=== PATIENT | female | born 1955 | race African-American/Black ===

== ENCOUNTER 2017-02-14 10:11 | Day surgery (SDC) | payer MEDICARE, MEDICAID ==
--- NOTE | 2017-02-14 08:29 | History and Physical Report ---
DATE OF EVALUATION: 02/13/2017. CHIEF COMPLAINT AND HISTORY OF CHIEF COMPLAINT: This patient presents with a history of intractable lumbar radiculitis. Due to the failure of all therapies , a spinal cord stimulator trial was conducted on 01/22/2017 with 75 to 85% pain control. Due to the failure of all therapies and the success of the trial she presents today for implantation of a permanent system. PAST MEDICAL HISTORY: Hypertension, asthmatic bronchitis, hypothyroidism. REVIEW OF SYSTEMS: The patient seems appropriate and in no acute distress. The remainder of the systems review shows glasses, headaches, breathing difficulties, peripheral edema, degenerative arthritis, depression, difficulty sleeping. SOCIAL HISTORY: Caffeine. FAMILY HISTORY: Thyroid disease, asthma, hypertension. PAST SURGICAL HISTORY: Abdominal surgery, rotator cuff surgery. ALLERGIES: To be provided. MEDICATIONS ON ADMISSION: To be provided. PHYSICAL EXAMINATION: General: Height is 5 feet, 6 inches. Weight is 300 pounds. Vital Signs: Blood pressure is 140/80. Musculoskeletal: Current examination shows diffuse tenderness in the lumbar spine. Range of motion produces primary pain into both legs across the front and back surface. Ambulation: No assistive device utilized. Neurologic: Cranial nerves are intact. IMPRESSION: LUMBAR RADICULITIS, ICD10 CODE M54.16 AND M54.17. PLANS: The patient is here for implantation of a permanent spinal cord stimulator based upon a successful trial and the failure of all other therapies. The potential risks, side effects, and complications have been carefully reviewed and discussed including nerve root injury, spinal cord trauma , dural puncture, and headache. She understands and has agreed and consented. The procedure will be considered outpatient, although an overnight stay will be evaluated. Ramírez Lua D.O. Date Time JOB NUMBER: [id number] cc: Dr. Katerine LAZAR
[~2017-02-14 10:11] MED LIST: ACETAMINOPHEN 1000MG/100 ML PREMIX IV ONE; CEFAZOLIN 2 Gram 50 ML IVPB ONE; FAMOTIDINE 20MG TABLET PO ONE; MECLIZINE 25 MG TABLET PO ONE; METOCLOPRAMIDE 10 MG TABLET PO ONE
[2017-02-14] MEDS ORDERED: AL HYDROX/MAG HYDROX 30ML UD PO PRN (14:33)
[2017-02-14] MEDS ORDERED: METOCLOPRAMIDE HCL 10 MG/2 ML VIAL IVP PRN (14:33)
[2017-02-14] MEDS ORDERED: SENNOSIDES/DOCUSATE SODIUM UD CAPSULE PO PRN ×2 (14:33)
[2017-02-14] MEDS ORDERED: DIPHENHYDRAMINE HCL IV 50 MG/ML VIAL IVP PRN ×2 (14:33)
[2017-02-14] MEDS ORDERED: TEMAZEPAM 15 MG CAPSULE PO PRN ×2 (14:33)
[2017-02-14] MEDS ORDERED: DIPHENHYDRAMINE HCL 25 MG CAPSULE PO PRN ×2 (14:33)
[2017-02-14] MEDS ORDERED: METOCLOPRAMIDE 10 MG TABLET PO PRN (14:33)
[2017-02-14] MEDS ORDERED: OXYCODONE/APAP 10MG-325MG TABLET PO PRN (14:33)
[2017-02-14] MEDS ORDERED: ACETAMINOPHEN 325 MG TAB PO PRN ×2 (14:33)
[2017-02-14] MEDS ORDERED: HYDROMORPHONE HCL 1 MG/ML CPJ IM PRN (14:33)
[2017-02-14] MEDS ORDERED: HYDROCODONE/APAP 7.5/325MG TABLET PO PRN ×2 (14:33)
[2017-02-14] MEDS ORDERED: CYCLOBENZAPRINE 10MG TABLET PO PRN (14:40)
[2017-02-14] MEDS ORDERED: DIAZEPAM 5 MG TABLET PO PRN (14:40)
[2017-02-14] MEDS ORDERED: HYDROMORPHONE HCL 2 MG/ML VIAL IV ONE (16:19)
[2017-02-14] MEDS ORDERED: CEFAZOLIN 1G VIAL IM ONE (16:19)
[2017-02-14] MEDS ORDERED: FENTANYL PF 100MCG/2ML VIAL IV ONE ×2 (16:19→16:26)
[2017-02-14] MEDS ORDERED: LIDOCAINE 1% W/EPI 1:200,000 MPF 30ML SQ ONE (16:19)
[2017-02-14] MEDS ORDERED: BUPIVACAINE 0.5% W/EPI MPF 30 ML VIAL IVP ONE (16:19)
[2017-02-14] MEDS ORDERED: MIDAZOLAM HCL 2MG/2ML VIAL IV ONE (16:26)
[2017-02-14] MEDS ORDERED: PROPOFOL 10 MG/ML VIAL IV ONE (16:26)
[2017-02-14] MEDS ORDERED: LABETALOL HCL 5MG/ML, 20ML VIAL SIVP ONE (16:26)
[2017-02-14] MEDS ORDERED: LIDOCAINE 2% MDV (20MG/ML) 20ML VIAL IV ONE (16:26)
[2017-02-14] MEDS: CEFAZOLIN 2 Gram 50 ML IVPB SCH (19:55)
[2017-02-14] MEDS: HYDROMORPHONE HCL 2 MG/ML VIAL IM PRN (20:01)
[2017-02-14] MEDS: 0.9 % SODIUM CHLORIDE 10ML SYR IVP SCH (21:49)
[2017-02-14] MEDS ORDERED: TRAZODONE 50 MG TABLET PO SCH (22:00)
[2017-02-15] MEDS: HYDROMORPHONE HCL 2 MG/ML VIAL IM PRN (02:37)
[2017-02-15] MEDS: CEFAZOLIN 2 Gram 50 ML IVPB SCH ×2 (03:17→09:49)
[2017-02-15] MEDS: OXYCODONE/APAP 10MG-325MG TABLET PO PRN ×2 (06:32→11:00)
[2017-02-15] MEDS ORDERED: PANTOPRAZOLE SODIUM 40 MG TABLET PO SCH (07:00)
[2017-02-15] MEDS ORDERED: LEVOTHYROXINE SODIUM 175 MCG TABLET PO SCH (07:00)
[2017-02-15] MEDS: 0.9 % SODIUM CHLORIDE 10ML SYR IVP SCH (09:03)
[2017-02-15] MEDS ORDERED: LOSARTAN POTASSIUM 25 MG TABLET PO SCH (10:00)
[2017-02-15] MEDS ORDERED: BUPROPION HCL 150 MG TAB.SR.12H PO SCH (10:00)
--- NOTE | 2017-02-19 12:07 | RADIOLOGY REPORT ---
EXAM: LOWER THORACIC AND LUMBAR SPINE, SINGLE VIEW HISTORY: CATHETER PLACEMENT. TECHNIQUE: A single AP view of the lower thoracic and upper lumbar spine were obtained. Comparison: Intraoperative images from today's date. FINDINGS: There is a stimulating device projecting over the left lower quadrant with two proximal lead tips. The proximal portions of the tips project over the T8 vertebral body. Correlate with intraoperative findings. IMPRESSION: STIMULATING WIRES IN PLACE, ABOVE. JOB NUMBER: [id number] MTDD
--- NOTE | 2017-02-20 15:10 | Operative Note - Ferro ---
DATE OF SURGERY: 02/14/17 PREOPERATIVE DIAGNOSIS: INTRACTABLE LUMBAR RADICULITIS, ICD-10 CODE = M54.16 AND M54.17. OPERATION: 1. FLUOROSCOPICALLY-GUIDED LEFT EPIDURAL ACCESS T12/L1, PLACEMENT OF SPINAL CORD STIMULATOR LEAD 1, A [employer] INFINION 16 WITH 16 ELECTRODES POSITIONED LEFT T7. 2. COMPLEX PROGRAMMING LEAD 1, 20 MINUTES. 3. FLUOROSCOPICALLY-GUIDED EPIDURAL ACCESS LEFT T11/12, PLACEMENT OF SPINAL CORD STIMULATOR LEAD 2, A [employer] INFINION 16 WITH 16 ELECTRODES POSITIONED RIGHT T7. 4. COMPLEX PROGRAMMING LEAD 2, 20 MINUTES. 5. INCISION, SUBCUTANEOUS DISSECTION, AND ANCHORING OF LEAD 1 AND LEAD 2 TO DEEP FASCIA USING A [employer] LOCKING ANCHOR. 6. INCISION, SUBCUTANEOUS DISSECTION, AND CREATION OF SUBCUTANEOUS POUCH, LEFT FLANK, SITE PICKED BY PATIENT FOR GENERATOR IDENTIFIED A [employer] PROGRAMMABLE RECHARGEABLE. 7. TUNNELING BETWEEN POUCHES. PLACEMENT OF EXTERNAL PORTION OF LEAD 1 AND LEAD 2 INTO GENERATOR POUCH, EACH LEAD INTERFACED WITH BIFURCATED EXTENSION, EACH BIFURCATED EXTENSION INTERFACED TO GENERATOR. 8. PLACEMENT OF LEADS INTO POUCH, PLACEMENT OF GENERATOR INTO POUCH SECURED TO THE FASCIA WITH NONABSORBABLE SUTURE AND THEN THE INCISIONS WERE CLOSED VICRYL FOR FASCIA, RUNNING SUBCUTICULAR VICRYL FOR SKIN. DERMABOND CLOSURE. 9. COMPLEX RECOVERY ROOM PROGRAMMING INTERNAL GENERATOR HOME USE, TWO STIMULATORS, 20 MINUTES. SURGEON: KUN SPANGLER D.O. ANESTHESIA: LOCAL SEDATION. ANESTHESIA PROVIDER: GEO RAMIREZ CRNA. INDICATION: This patient presents with a history of intractable lumbar radiculitis. Due to the failure of all therapies, a stimulator trial was conducted with 75 to 90% pain control. Due to the failure of all therapies and the success of the trial, the patient presents today for implantation of a permanent system. PROCEDURE: Intravenous line, vital sign monitoring, IV sedation by Anesthesia, patient positioned prone. Sterile prep, sterile technique. Under imaging, from the left side T11/12 and 12/1 were identified, marked, infiltrated, and then two separate curved access Epimed needles with [id number] into the epidural space. At T12/1, spinal cord stimulator lead 1, a [employer] Infinion 16 with 16 electrodes positioned left T7. Epidural access left of midline at T11/12, Epimed curved access with [id number], spinal cord stimulator lead 2, also a [employer] Infinion 16 with 16 electrodes, positioned right T7. Complex programming of lead 1 over 20 minutes followed by complex programming of lead 2 over 20 minutes ultimately resulting in patterns of stimulation across the back and into the legs; patient indicating we were in all of the appropriate areas. She was given the option to implant, continue to program, or remove; she opted to implant. Questions were repeated with the same response. The skin above and below the needles was infiltrated, incision made, and subcutaneous dissection was conducted to the deep fascia. The needles were removed and each lead was anchored to the deep fascia with a [employer] [place] using nonabsorbable suture. At the left flank, a site picked by the patient for the generator identified as a [employer] Programmable Rechargeable, skin infiltrated, incision made, and subcutaneous dissection was conducted to form a pouch of suitable size and depth for the generator. A tunneling tool was then used to carry the leads into the generator pouch and each lead was interfaced with a bifurcated extension, each bifurcated extension was then interfaced to the generator. Antibiotic irrigation and Bovie for hemostasis. The leads were then placed into the pouch, the generator placed into the pouch and secured to the fascia with nonabsorbable suture. The incisions were closed Vicryl for fascia and running subcuticular Vicryl for skin. A Dermabond closure to approximate the edges of the wound. She was transported to the Recovery Room stable showing no side-effects from the procedure or the sedation. When fully awake and alert, complex re-programming performed in the Recovery Room over 20 minutes re-establishing stimulation and pain control to all of the appropriate areas. By her request because of no support system at home, she will be kept overnight for observation and discharged in the morning. DISCHARGE INSTRUCTIONS IN THE MORNIN. The sites will remain clean and dry although the Dermabond will allow showering on the next day. 2. Standard medications resumed including Levaquin, the antibiotic, 500 mg once a day for 14 days. 3. She will limit activities limiting bend, push, pull and will be seen in the office. At that point, once the incisions are checked, she will be cleared for further activities. All other instructions provided, numbers to contact, problems given. She will be discharged in the morning. KUN SPANGLER D.O. Date & Time cc: Dr. Garcias JOB NUMBER: [id number] MTDD
== END 2017-02-15 12:33 | disposition home or self-care (01) ==
LOC: SUR 10:11 → MEDSURG 14:22 → SUR 02-15 12:33
PROVIDERS: ATTEND Pain Medicine Interventional Pain Medicine
DX: M54.16 Radiculopathy, lumbar region (principal); M54.17 Radiculopathy, lumbosacral region; E03.9 Hypothyroidism, unspecified; I10 Essential (primary) hypertension
CPT/HCPCS: 95972; 72020; 63685; 63650 ×2; 00300; J3490; J3010; J1170 ×3; J0690 ×2

== ENCOUNTER 2017-04-05 09:19 | Inpatient (IN) | payer MEDICARE, MEDICAID ==
--- NOTE | 2017-03-22 15:33 | Rehab Joint Replacement Pre-Op ---
Rehab Joint Replacement Pre-Op - Pre-Op Visit Reviewed Items Scheduled for Post Op Visit: Yes Scheduled Post Op Visit Date: 04/06/17 Pre-Op Visit Comment: Pt. lives in a single story apartment with 5 steps leading in and hand rails on both sides. Pt. has a raised toilet seat and standard shower tub. Pt. has family members at home who are able to provide support. Pt. is on physical disability. Pt. has a single point cane and standard walker. Lang Hose/Garment Measurement TKR - Knee High: Yes (Measurements taken for knee high Lang Hose.) Exercise Reviewed: Yes (Pt. instructed to perform ankle pumps, quad sets, glut sets, and heel slides.) Stair Climbing: Yes (Pt. instructed to ascend and descend stairs with standard walker and single point cane.) Cane/Walker/Crutch Training: Yes (Pt. instructed to ambulate with standard walker and single point cane.) Vend Equipment - Cane or Walker and OT Kit: N/A (Pt. received list of DME vendors.) List of Venders in the Area: Yes Shower Chair Transfers: Yes (Pt. instructed to hook operative LE and transfer to and from shower chair.) Car Transfers: Yes (Pt. instructed to appropriately perform car transfer.) Bed Transfers: Yes (Pt. instructed to appropriately perform bed mobility.) Medical History Forms Issued: No Functional Scale Forms Issued: No
[~2017-04-05 09:19] MED LIST changes: +CELECOXIB 100 MG CAPSULE PO ONE
[2017-04-05] MEDS ORDERED: MIDAZOLAM HCL 2MG/2ML VIAL IV ONE (14:00)
[2017-04-05] MEDS ORDERED: BUPIVACAINE 0.25% MPF 30ML VIAL IVP ONE (14:00)
[2017-04-05] MEDS ORDERED: BUPIVACAINE LIPOSOME 266MG/20ML VIAL IV ONE (14:00)
[2017-04-05] MEDS ORDERED: LIDOCAINE 2% MDV (20MG/ML) 20ML VIAL IV ONE (14:00)
[2017-04-05] MEDS ORDERED: HYDROMORPHONE HCL 2 MG/ML VIAL IV ONE ×2 (14:00)
[2017-04-05] MEDS ORDERED: PROPOFOL 10 MG/ML VIAL IV ONE (14:00)
[2017-04-05] MEDS ORDERED: DIPHENHYDRAMINE HCL IV 50 MG/ML VIAL IVP ONE (14:00)
[2017-04-05] MEDS ORDERED: FENTANYL PF 100MCG/2ML VIAL IV ONE (14:00)
[2017-04-05] MEDS ORDERED: TRANEXAMIC ACID 1,000 MG/10 ML ML IV ONE (14:00)
[2017-04-05] MEDS: RINGERS SOLUTION,LACTATED 1,000 ML IV SCH (14:20)
[2017-04-05] MEDS ORDERED: HYDROMORPHONE HCL 1 MG/ML CPJ IVP PRN (14:59)
[2017-04-05] MEDS ORDERED: ZOLPIDEM TARTRATE 5 MG TABLET PO PRN (15:00)
[2017-04-05] MEDS ORDERED: MAGNESIUM HYDROXIDE 30 ML UDC PO PRN (15:00)
[2017-04-05] MEDS ORDERED: METOCLOPRAMIDE HCL 10 MG/2 ML VIAL IVP PRN (15:00)
[2017-04-05] MEDS ORDERED: OXYCODONE HCL 5 MG TABLET PO PRN (15:00)
[2017-04-05] MEDS ORDERED: AL HYDROX/MAG HYDROX 30ML UD PO PRN (15:00)
[2017-04-05] MEDS ORDERED: OXYCODONE/APAP 7.5MG/325MG TABLET PO PRN (15:00)
[2017-04-05] MEDS ORDERED: ONDANSETRON HCL IV 4 MG/2 ML VIAL IVP PRN (15:00)
[2017-04-05] MEDS ORDERED: DIPHENHYDRAMINE HCL 25 MG CAPSULE PO PRN (15:00)
[2017-04-05] MEDS ORDERED: TRAMADOL HCL 50 MG TABLET PO PRN (15:00)
[2017-04-05] MEDS ORDERED: HYDROCODONE/APAP 7.5/325MG TABLET PO PRN ×2 (15:00)
[2017-04-05] MEDS: HYDROMORPHONE HCL 1 MG/ML CPJ IVP PRN ×5 (15:17→20:48)
[2017-04-05] MEDS: OXYCODONE/APAP 7.5MG/325MG TABLET PO PRN (15:39)
[2017-04-05] MEDS ORDERED: TRANEXAMIC ACID 1,000 MG in 0.9 % SODIUM CHLORIDE 100ML 100 ML IVPB ONE (17:00)
--- NOTE | 2017-04-05 18:31 | Rehab Evaluation ---
Patient Information - Patient Information Diagnosis: Right Knee OA Ordered Treatment: PT Evaluate and Treat Status: Initial Evaluation Surgery: Yes (R Knee TKA) Date of Surgery: 04/05/17 History: Detail (Pt. reports history of knee arthritis and worsening of sx for years time.) Past Med/Korina Hx Detail: Detail (See additional history forms.) Past Medical/Surgical Hx: PAST MEDICAL/SURGICAL HISTORY Past Surgical History SCS trial bilat rotator cuff repair gastric bypass 1997 PMH - Respiratory Hx Respiratory Disorders Yes Hx Asthma Yes: well controlled with Proair Hx Bronchitis Yes Hx Pneumonia Yes PMH - Cardiovascular Hx Cardiovascular Disorders Yes Hx Edema Yes: at times Hx Hypertension Yes: controlled with meds Hx Heart Murmur Yes Exercise Tolerance Fair Comment: uses cane and walker because of bad knee right needs replacement PMH - Neuro Hx Neurological Disorders Yes Hx Neuropathy Yes PMH - GI Hx Gastrointestinal Disorders Yes Hx Gastroesophageal Reflux Yes PMH - Hx Genitourinary Disorders No Hx Age of Menopause 37 PMH - Endocrine Hx Endocrine Disorders Yes Hx Thyroid Disease Yes PMH - Musculoskeletal Hx Musculoskeletal Disorders Yes Hx Arthritis Yes Hx Back Injury Yes Hx Fibromyalgia Yes Hx Osteoporosis Yes Comment: OSTEOARTHRITIS PMH - Psych Hx Psychiatric Problems Yes Hx Anxiety Yes: on meds but still some problems Hx Depression Yes PMH - Hematology/Oncology Hx Hematology/Oncology Yes Disorders Hx Anemia Yes: since gastric bypass Premorbid Status: Detail (Pt. reports slowly progressive worsening.) Social History: Detail (Pt. lives in a single story apartment with 5 steps leading in and hand rails on both sides. Pt. has a raised toilet seat and standard shower tub. Pt. has been on physical disability. Pt. has a daughter that visits frequently and lives in [place].) Precautions: Check, Fall - Time With Patient Total Time Spent With Patient (Min): 60 Treatment Procedures: Detail (Physical Therapy Evaluation completed. O2 sat 98% at start of tx. Vitals stable and appropriate for exercise. Nursing was notified of pt.'s status upon completion of tx. Pt. was left supine with call light available, B IPC, CPM attached, cryo RLE.) Subjective Information - Subjective Information Per Patient (Pt. reported 7/10 knee pain. Pt. denied nausea, SOB, chest pain. Pt. reported full sensation at the feet.) Objective Data - Pain Pain Present: Yes Pain Intensity: 7 Pain Scale Used: Numeric (1 - 10) - Mental Status Patient Orientation: Oriented x3 - Visual Perception Appears within normal limits for therapeutic activities - ROM Not within normal limits ( Right Knee flexion and extension ROM not tested for active values due to surgery. Passive flexion set at 60 degrees and passive extension set at 0 degrees via CPM.) - Strength/Tone Not within normal limits (Knee flexion and extension strength not tested due to recent surgery. Left leg exhibited functional strength needed for bed mobility and transfers. BUE demonstrated functional strength with transfers and advancement of AD.) - Coordination Appears within normal limits for therapeutic activities - Bed Mobility Needs Assist (Pt. required mod assist x1 with bed mobility and respositioning to head of bed. Pt. unable to swing operative leg via "hook" with contralateral LE.) - Transfers Needs Assist (Pt. required moderate assistance x1 with seated<->standing transfer and PT prevented excessive trunk flexion with sit to stand to maintain upright positioning with transfer for safe body positioning/awareness.) - Balance Balance Sitting: Fair (Pt. lost midline orientation with light perturbation testing in all directions while seated.) Balance Standing: Fair (Pt. lost midline orientation with light perturbation testing in all directions while standing.) - Sensation Intact (Pt. appropriately expressed light touch at the RLE with eyes closed, as well as kinesthetic awareness.) - Gait Detail (Pt. ambulated with front wheeled walker to bathroom and back (total of ~ 20 feet) with moderate assistance and required verbal cueing to appropriately advance the walker and position the operative LE to avoid pivoting.) - ADL's/IADL's Detail (Pt. able to josefina/doff undergarments while standing next to toilet seat.) - Special Tests No Therapy Assessment - Therapy Assessment Detail (Pt. exhibits good understanding of LE positioning and transfers following verbal instruction.) Patient Education - Patient Education Teaching Topic: Equipment Use, Precautions, Risk Factors Response: Return Demonstration, Verbalize Understanding Teaching Method: Discussion, Demonstration Teaching Recipient: Patient Barriers To Learning: None Problem List - Problem List Physical Therapy Problem List: Detail (1) LE weakness 2) Assistance needed with transfers 3) Antalgic gait 4) Poor safety/body awareness with sit to stand transfer) Occupational Therapy Problem List: Detail Goals - Goals Physical Therapy Goals: 1) Pt. will be independent with ambulation using AD for at least 50 feet. 2) Pt. will be independent with bed mobility and transfer. 3 ) Pt. will verbalize understanding of precautions and positioning of LE during car and bathroom transfer. 4) Pt. will exhibit improved body awareness when standing with AD. 5) Pt. will independently ascend and descend 5 steps with or without AD and not demonstrate loss of midline orientation for safe stair use. Prognosis - Prognosis Good (Pt. is a good candidate for skilled physical therapy services to improve safety with transfers, improve seated and standing balance, improve LE ROM and strength, as well as functionality with car and stair use to return safely to the home environment. Pt. is scheduled to receive continued physical therapy services at [facility] in the swingbed program considering pt.'s PMH, home environment and difficulty with transportation.) Plan - Plan Physical Therapy Plan: Pt. is to be seen 1-2x per day for physical therapy services starting on 04/05/17 and continue until goals met and pt. is appropriate for safe return to home environment.
[2017-04-05] MEDS ORDERED: FONDAPARINUX 2.5 MG/0.5 ML SYR SQ SCH (20:00)
[2017-04-05] MEDS: CEFAZOLIN 2 Gram 2 GM/50 ML BAG IVPB SCH (20:01)
[2017-04-05] MEDS: OXYCODONE HCL 5 MG TABLET PO PRN (21:05)
[2017-04-05] MEDS: TRAZODONE 50 MG TABLET PO SCH (22:43)
[2017-04-05] MEDS: ASPIRIN 325 MG TAB ENTERIC-COATED PO SCH (22:44)
[2017-04-05] MEDS: CYCLOBENZAPRINE 10MG TABLET PO PRN (22:44)
[2017-04-06] MEDS: HYDROMORPHONE HCL 1 MG/ML CPJ IVP PRN ×8 (00:07→16:23)
[2017-04-06] MEDS: OXYCODONE HCL 5 MG TABLET PO PRN ×4 (01:25→13:31)
[2017-04-06] MEDS: CEFAZOLIN 2 Gram 2 GM/50 ML BAG IVPB SCH ×2 (03:38→12:20)
[2017-04-06] MEDS: CYCLOBENZAPRINE 10MG TABLET PO PRN ×3 (04:24→21:34)
[2017-04-06] MEDS: RINGERS SOLUTION,LACTATED 1,000 ML IV SCH ×2 (07:01→20:50)
[2017-04-06] MEDS: LEVOTHYROXINE SODIUM 175 MCG TABLET PO SCH (07:01)
[2017-04-06] MEDS: PANTOPRAZOLE SODIUM 40 MG TABLET PO SCH (07:01)
[2017-04-06 07:05] LABS: HEMATOCRIT 34.2 % (35.0-47.0); HEMOGLOBIN 11.1 gm/dl (11.6-16.0); MEAN CELL VOLUME 92.9 fl (81-97); MEAN CORPUSCULAR HGB CONC 32.5 g/dl (32-36); MEAN PLATELET VOLUME 10.6 fl (7.4-10.4); PLATELET COUNT 205 K/uL (130-400); RED BLOOD COUNT 3.68 M/uL (3.80-5.40); RED CELL DISTRIBUTION WIDTH 14.2 % (11.5-14.5); WHITE BLOOD COUNT W/O DIFF 6.8 K/uL (4.2-12.2)
[2017-04-06 07:10] LABS: MEAN CORPUSCULAR HEMOGLOBIN 30.1 pg (27-33)
[2017-04-06] MEDS: TRAMADOL HCL 50 MG TABLET PO PRN ×2 (08:26→19:11)
[2017-04-06] MEDS: DIAZEPAM 5 MG TABLET PO PRN ×2 (08:27→16:25)
[2017-04-06] MEDS: BUPROPION HCL 150 MG TAB.SR.12H PO SCH (10:40)
[2017-04-06] MEDS: FERROUS SULFATE 325 MG TAB PO SCH (10:41)
[2017-04-06] MEDS: LOSARTAN POTASSIUM 25 MG TABLET PO SCH (10:41)
[2017-04-06] MEDS: ASPIRIN 325 MG TAB ENTERIC-COATED PO SCH ×2 (10:41→21:34)
[2017-04-06] MEDS: LATUDA 80 MG PO SCH ×2 (10:42→14:00)
[2017-04-06] MEDS: DIVALPROEX SODIUM 500 MG TABLET ER PO SCH (10:42)
--- NOTE | 2017-04-06 11:14 | Physical Therapy Tx Note ---
Physical Therapy Tx Note - Treatment Note Tolerated: Poor (Pt. denied PT services due to exhaustion from being up all night. Pt. requested to sleep and see PT after lunch. Pt. was not seen for A.M. session due to reports of fatigue, deferred services, and hemoglobin count. Pt. was issued a front wheeled walker and paperwork was left for referring physician.) Physical Therapy Problem List: Detail (1) LE weakness 2) Assistance needed with transfers 3) Antalgic gait 4) Poor safety/body awareness with sit to stand transfer) Physical Therapy Goals: 1) Pt. will be independent with ambulation using AD for at least 50 feet. 2) Pt. will be independent with bed mobility and transfer. 3 ) Pt. will verbalize understanding of precautions and positioning of LE during car and bathroom transfer. 4) Pt. will exhibit improved body awareness when standing with AD. 5) Pt. will independently ascend and descend 5 steps with or without AD and not demonstrate loss of midline orientation for safe stair use. Physical Therapy Plan: Pt. is to be seen 1-2x per day for physical therapy services starting on 04/05/17 and continue until goals met and pt. is appropriate for safe return to home environment.
[2017-04-06] MEDS: ALBUTEROL HFA 8 GM INHALER INH SCH (13:05)
--- NOTE | 2017-04-06 14:33 | Rehab Evaluation ---
Patient Information - Patient Information Diagnosis: Right Knee OA Ordered Treatment: OT Evaluate and Treat Status: Initial Evaluation Surgery: Yes (R Knee TKA) Date of Surgery: 04/05/17 History: Detail (Pt. reports history of knee arthritis and worsening of sx for years time.) Past Med/Korina Hx Detail: Detail (See additional history forms.) Past Medical/Surgical Hx: PAST MEDICAL/SURGICAL HISTORY Past Surgical History SCS trial bilat rotator cuff repair gastric bypass 1997 PMH - Respiratory Hx Respiratory Disorders Yes Hx Asthma Yes: well controlled with Proair Hx Bronchitis Yes Hx Pneumonia Yes PMH - Cardiovascular Hx Cardiovascular Disorders Yes Hx Edema Yes: at times Hx Hypertension Yes: controlled with meds Hx Heart Murmur Yes Exercise Tolerance Fair Comment: uses cane and walker because of bad knee right needs replacement PMH - Neuro Hx Neurological Disorders Yes Hx Neuropathy Yes PMH - GI Hx Gastrointestinal Disorders Yes Hx Gastroesophageal Reflux Yes PMH - Hx Genitourinary Disorders No Hx Age of Menopause 37 PMH - Endocrine Hx Endocrine Disorders Yes Hx Thyroid Disease Yes PMH - Musculoskeletal Hx Musculoskeletal Disorders Yes Hx Arthritis Yes Hx Back Injury Yes Hx Fibromyalgia Yes Hx Osteoporosis Yes Comment: OSTEOARTHRITIS PMH - Psych Hx Psychiatric Problems Yes Hx Anxiety Yes: on meds but still some problems Hx Depression Yes PMH - Hematology/Oncology Hx Hematology/Oncology Yes Disorders Hx Anemia Yes: since gastric bypass Premorbid Status: Detail (Pt. reports slowly progressive worsening.) Social History: Detail (Pt. reports she lives with spouse in a first floor apartment with 5-6 steps leading in and hand rails on one sides. Pt. has a raised toilet seat and standard shower tub combination with an extended tub bench. She reports her spouse assists with showering and dressing and he completes all home mgmt, meal prep and laundry. Pt. has been on physical disability. She has a 2 wheeled walker and a straight cane. Pt. has a daughter that visits frequently and lives in [place].) Precautions: [place], Fall - Time With Patient Total Time Spent With Patient (Min): 40 Treatment Procedures: Detail (OT eval low complexity) Subjective Information - Subjective Information Per Patient, Other (Spouse present for evaluation.) Objective Data - Pain Pain Present: Yes (05/28) - Mental Status Patient Orientation: Oriented x3 - Visual Perception Appears within normal limits for therapeutic activities (Pt reports she wears glasses for reading.) - ROM Not within normal limits (Deshawn shoulder flexion limited right more than left, pt reports prior rotator cuff surgeries. Deshawn elbow, wrist and hand AROM WNL.) - Strength/Tone Not within normal limits (Deshawn shoulder flexion 3+/5 within AROM limitations. Deshawn elbow flexion, extension and hose stripper 4/5.) - Bed Mobility Needs Assist (Mod assist for supine to sit using trapeze.) - Transfers Needs Assist (Mod assist for sit to stand from standard height toilet, Ind with sit to stand from chair.) - Balance Balance Sitting: Good Balance Standing: Good - Sensation Intact - Gait Detail (Pt able to ambulate approx. 40 feet with 2 wheeled walker and CG assist. ) - ADL's/IADL's Detail (Pt reports nursing has been assisting with all self care activities. She was able to complete doffing and donning of brief Indly, toileted Indly with assist to stand from standard toilet.) Therapy Assessment - Therapy Assessment Detail (Pt presents with decreased Ind with self cares, decreased Ind with functional mobility and decreased UE strength needed for Ind self cares.) Problem List - Problem List Physical Therapy Problem List: Detail (1) LE weakness 2) Assistance needed with transfers 3) Antalgic gait 4) Poor safety/body awareness with sit to stand transfer) Occupational Therapy Problem List: Detail (1. Decreased Ind with self care activities 2. Decreased functional mobility 3. Decreased UE strength) Goals - Goals Physical Therapy Goals: 1) Pt. will be independent with ambulation using AD for at least 50 feet. 2) Pt. will be independent with bed mobility and transfer. 3 ) Pt. will verbalize understanding of precautions and positioning of LE during car and bathroom transfer. 4) Pt. will exhibit improved body awareness when standing with AD. 5) Pt. will independently ascend and descend 5 steps with or without AD and not demonstrate loss of midline orientation for safe stair use. Occupational Therapy Goals: 1. Pt will be Ind with total body dressing 2. Pt will be safe and Ind with functional mobility Prognosis - Prognosis Moderate Plan - Plan Physical Therapy Plan: Pt. is to be seen 1-2x per day for physical therapy services starting on 04/05/17 and continue until goals met and pt. is appropriate for safe return to home environment. Occupational Therapy Plan: OT 1-4 days per week to address self cares, functional mobility, UE strength to allow safe return home with spouse.
[2017-04-06] MEDS ORDERED: ACETAMINOPHEN 325 MG TAB PO PRN (15:00)
--- NOTE | 2017-04-06 16:13 | Physical Therapy Tx Note ---
Physical Therapy Tx Note - Treatment Note Tolerated: Fair Total Time Spent With Patient: 35 Physical Therapy Tx Note: Detail (Patient states 6/10 pain in right knee. Patient transferred supine to sit min assist x1 to support right LE. Patient transferred sit to and from stand CGA x1. Patient ambulated 13 feet with wheeled walker CGA x1. Patient transferred sit to stand mod assist x1 from toilet. Patient ambulated 13 feet with wheeled walker CGA x1. Patient transferred stand to sit CGA x1. Patient performed the following exercises: seated heel raises x10, seated toe raises x10, seated hip flexion x10, quad sets x10, hamstring sets x10, and seated heel slides x5. Patient transferred sit to supine min assist x1 to lift right LE. Patient reports knee sore after treatment. Patient was left supine in bed with CPM, cryo, and pneumatic compression with call light within reach.) Physical Therapy Problem List: Detail (1) LE weakness 2) Assistance needed with transfers 3) Antalgic gait 4) Poor safety/body awareness with sit to stand transfer) Physical Therapy Goals: 1) Pt. will be independent with ambulation using AD for at least 50 feet. 2) Pt. will be independent with bed mobility and transfer. 3 ) Pt. will verbalize understanding of precautions and positioning of LE during car and bathroom transfer. 4) Pt. will exhibit improved body awareness when standing with AD. 5) Pt. will independently ascend and descend 5 steps with or without AD and not demonstrate loss of midline orientation for safe stair use. Prognosis: Good Physical Therapy Plan: Pt. is to be seen 1-2x per day for physical therapy services starting on 04/05/17 and continue until goals met and pt. is appropriate for safe return to home environment.
[2017-04-06] MEDS: OXYCODONE/APAP 7.5MG/325MG TABLET PO PRN ×2 (16:25→22:27)
[2017-04-06] MEDS: TRAZODONE 50 MG TABLET PO SCH (21:34)
[2017-04-07] MEDS: DIAZEPAM 5 MG TABLET PO PRN ×3 (02:39→22:12)
[2017-04-07] MEDS: PANTOPRAZOLE SODIUM 40 MG TABLET PO SCH (06:19)
[2017-04-07] MEDS: LEVOTHYROXINE SODIUM 175 MCG TABLET PO SCH (06:19)
[2017-04-07 06:25] LABS: HEMATOCRIT 30.7 % (35.0-47.0); MEAN CELL VOLUME 92.2 fl (81-97); MEAN CORPUSCULAR HGB CONC 32.6 g/dl (32-36); MEAN PLATELET VOLUME 9.1 fl (7.4-10.4); PLATELET COUNT 178 K/uL (130-400); RED BLOOD COUNT 3.33 M/uL (3.80-5.40)
[2017-04-07] MEDS: ALBUTEROL HFA 8 GM INHALER INH SCH ×2 (08:56→13:51)
[2017-04-07] MEDS: TRAMADOL HCL 50 MG TABLET PO PRN ×2 (09:03→22:13)
[2017-04-07] MEDS: OXYCODONE/APAP 7.5MG/325MG TABLET PO PRN ×3 (10:41→20:12)
[2017-04-07] MEDS: ASPIRIN 325 MG TAB ENTERIC-COATED PO SCH ×2 (10:41→22:14)
[2017-04-07] MEDS: LOSARTAN POTASSIUM 25 MG TABLET PO SCH (10:41)
[2017-04-07] MEDS: SENNOSIDES/DOCUSATE SODIUM UD CAPSULE PO PRN ×2 (10:42→22:15)
[2017-04-07] MEDS: FERROUS SULFATE 325 MG TAB PO SCH (10:42)
[2017-04-07] MEDS: DIVALPROEX SODIUM 500 MG TABLET ER PO SCH (10:42)
[2017-04-07] MEDS: BUPROPION HCL 150 MG TAB.SR.12H PO SCH (10:42)
[2017-04-07] MEDS: LATUDA 80 MG PO SCH (10:44)
--- NOTE | 2017-04-07 12:28 | Physical Therapy Tx Note ---
Physical Therapy Tx Note - Treatment Note Tolerated: Good Total Time Spent With Patient: 25 Physical Therapy Tx Note: Detail (Patient states 5/10 pain in right knee. Patient transferred sit to and from stand CGA x1. Patient ambulated 11 feet with wheeled walker SBA x1. Patient transferred sit to and from stand SBA x1. Patient ambulated 172 feet with wheeled walker SBA x1. Patient performed the following exercises x10 reps each: seated marching, hamstring sets, quad sets, seated heel slides, seated toe raises, seated heel raises, seated hip abduction with strap, and isometric hip adduction. Patient tolerated treament well. Patient displays decreased strength and endurance with seated marching, hamstring sets, and quad sets. Patient displays decreased knee flexion ROM with seated heel slides. Patient reports some increased complaints of pain in knee after treatment. Patient was left reclined in chair with call light within reach.) Physical Therapy Problem List: Detail (1) LE weakness 2) Assistance needed with transfers 3) Antalgic gait 4) Poor safety/body awareness with sit to stand transfer) Physical Therapy Goals: 1) Pt. will be independent with ambulation using AD for at least 50 feet. 2) Pt. will be independent with bed mobility and transfer. 3 ) Pt. will verbalize understanding of precautions and positioning of LE during car and bathroom transfer. 4) Pt. will exhibit improved body awareness when standing with AD. 5) Pt. will independently ascend and descend 5 steps with or without AD and not demonstrate loss of midline orientation for safe stair use. Prognosis: Good Physical Therapy Plan: Pt. is to be seen 1-2x per day for physical therapy services starting on 04/05/17 and continue until goals met and pt. is appropriate for safe return to home environment.
--- NOTE | 2017-04-07 13:59 | Physical Therapy Tx Note ---
Physical Therapy Tx Note - Treatment Note Tolerated: Fair Total Time Spent With Patient: 35 Physical Therapy Tx Note: Detail (Patient states right knee sore this afternoon. Patient was seated in chair upon YOU[employer] MINISTRY DIRECTOR arrival. Patient transferred sit to and from stand SBA x1. Patient ambulated 37 feet with wheeled walker SBA x1. Patient ascended and descended 3 steps CGA x1. Patient ambulated 50 feet with wheeled walker SBA x1. Patient transferred sit to and from stand SBA x1 from toilet using grab bar and sink to press up. Patient ambulated 13 feet with wheeled walker SBA x1. Patient performed the following exercises: seated marching x10, LAQ x10, seated heel slides x10, and SLR with assist x5. Patient transferred sit to supine min assist x1 to lift right LE. Patient scooted laterally in bed independently. Patient tolerated treatment well. Patient displays decreased strength and endurance with seated marching, LAQ, and SLR with assist. Patient reports fatigued after treatment and sore. Patient was left supine in bed with pneumatic compression and call light within reach.) Physical Therapy Problem List: Detail (1) LE weakness 2) Assistance needed with transfers 3) Antalgic gait 4) Poor safety/body awareness with sit to stand transfer) Physical Therapy Goals: 1) Pt. will be independent with ambulation using AD for at least 50 feet. 2) Pt. will be independent with bed mobility and transfer. 3 ) Pt. will verbalize understanding of precautions and positioning of LE during car and bathroom transfer. 4) Pt. will exhibit improved body awareness when standing with AD. 5) Pt. will independently ascend and descend 5 steps with or without AD and not demonstrate loss of midline orientation for safe stair use. Prognosis: Good Physical Therapy Plan: Pt. is to be seen 1-2x per day for physical therapy services starting on 04/05/17 and continue until goals met and pt. is appropriate for safe return to home environment.
[2017-04-07] MEDS ORDERED: HYDROCODONE/APAP 7.5/325MG TABLET PO PRN (15:04)
[2017-04-07] MEDS: CYCLOBENZAPRINE 10MG TABLET PO PRN (20:12)
[2017-04-07] MEDS: TRAZODONE 50 MG TABLET PO SCH (22:15)
[2017-04-08 06:34] LABS: HEMATOCRIT 29.4 % (35.0-47.0); HEMOGLOBIN 9.3 gm/dl (11.6-16.0); MEAN CELL VOLUME 94.8 fl (81-97); MEAN CORPUSCULAR HGB CONC 31.6 g/dl (32-36); MEAN PLATELET VOLUME 9.6 fl (7.4-10.4); PLATELET COUNT 197 K/uL (130-400); RED CELL DISTRIBUTION WIDTH 14.3 % (11.5-14.5); WHITE BLOOD COUNT W/O DIFF 5.5 K/uL (4.2-12.2)
[2017-04-08] MEDS: PANTOPRAZOLE SODIUM 40 MG TABLET PO SCH (07:11)
[2017-04-08] MEDS: CYCLOBENZAPRINE 10MG TABLET PO PRN ×2 (07:11→12:08)
[2017-04-08] MEDS: OXYCODONE/APAP 7.5MG/325MG TABLET PO PRN ×3 (07:12→13:54)
[2017-04-08] MEDS: LEVOTHYROXINE SODIUM 175 MCG TABLET PO SCH (07:12)
[2017-04-08] MEDS: ALBUTEROL HFA 8 GM INHALER INH SCH (10:15)
[2017-04-08] MEDS: DIVALPROEX SODIUM 500 MG TABLET ER PO SCH (10:30)
[2017-04-08] MEDS: LATUDA 80 MG PO SCH (10:31)
[2017-04-08] MEDS: BUPROPION HCL 150 MG TAB.SR.12H PO SCH (10:31)
[2017-04-08] MEDS: FERROUS SULFATE 325 MG TAB PO SCH (10:31)
[2017-04-08] MEDS: ASPIRIN 325 MG TAB ENTERIC-COATED PO SCH (10:31)
[2017-04-08] MEDS: LOSARTAN POTASSIUM 25 MG TABLET PO SCH (10:33)
[2017-04-08] MEDS: SENNOSIDES/DOCUSATE SODIUM UD CAPSULE PO PRN (10:48)
--- NOTE | 2017-04-08 12:03 | Physical Therapy Tx Note ---
Physical Therapy Tx Note - Treatment Note Tolerated: Good Total Time Spent With Patient: 45 Physical Therapy Tx Note: Detail (S: Pain level was around 7/10 last night and early this morning. Right now - after pain medications pain level is 5/10. It feels better O: Right knee flexion in sitting 84 degrees. Exercises - per patient request to be in sitting - LAQ 2x10, isometric quadriceps 2-3x10, ankle pumps 2x10, sitting heel toe raises 2x10, heel slides 2x10. Gait training using 2ww - worked on terminal knee extension during right lower extremity stance phase, heel to toe gait pattern, improving step and stride length, keeping walker at safe distance during ambulation. A: Patient had improved right knee flexion ROM to 93 degrees. improved gait awareness noted. P: Plan to see patient after lunch and to work on stair climbing.) Physical Therapy Problem List: Detail (1) LE weakness 2) Assistance needed with transfers 3) Antalgic gait 4) Poor safety/body awareness with sit to stand transfer) Physical Therapy Goals: 1) Pt. will be independent with ambulation using AD for at least 50 feet. 2) Pt. will be independent with bed mobility and transfer. 3 ) Pt. will verbalize understanding of precautions and positioning of LE during car and bathroom transfer. 4) Pt. will exhibit improved body awareness when standing with AD. 5) Pt. will independently ascend and descend 5 steps with or without AD and not demonstrate loss of midline orientation for safe stair use. Physical Therapy Plan: Pt. is to be seen 1-2x per day for physical therapy services starting on 04/05/17 and continue until goals met and pt. is appropriate for safe return to home environment.
--- NOTE | 2017-04-08 13:51 | Physical Therapy Tx Note ---
Physical Therapy Tx Note - Treatment Note Tolerated: Good Total Time Spent With Patient: 55 Physical Therapy Tx Note: Detail (S: Patient reported having soreness around right knee. No increase in sharp pain - more muscle soreness. Pain level 6/10. O : Treatment focused on therapeutic activity - stair climbing training - x2 - with x2 min assist - worked on proper lower extremity placement and pattern of effected vs uneffected leg placement. Gait training with 2ww - worked on improving ground clearance and terminal knee extension during stance phase. Therapeutic exercises - Isometric quadriceps, glutes, heel slides, ankle pumps - x20 repetitions each. A: Improved gait with improved knee extension control. Patient was able to do stair climbing without any difficulty and without any verbal cues by second trial. P: Discontinue PT at this time with transition to swingbed to help patient with post op rehabilitation and training for functional activities.) Physical Therapy Problem List: Detail (1) LE weakness 2) Assistance needed with transfers 3) Antalgic gait 4) Poor safety/body awareness with sit to stand transfer) Physical Therapy Goals: 1) Pt. will be independent with ambulation using AD for at least 50 feet. 2) Pt. will be independent with bed mobility and transfer. 3 ) Pt. will verbalize understanding of precautions and positioning of LE during car and bathroom transfer. 4) Pt. will exhibit improved body awareness when standing with AD. 5) Pt. will independently ascend and descend 5 steps with or without AD and not demonstrate loss of midline orientation for safe stair use. Physical Therapy Plan: Pt. is to be seen 1-2x per day for physical therapy services starting on 04/05/17 and continue until goals met and pt. is appropriate for safe return to home environment.
[2017-04-08] MEDS: DIAZEPAM 5 MG TABLET PO PRN (14:42)
--- NOTE | 2017-04-10 15:56 | Operative Note ---
DATE OF SURGERY: 04/05/2017 Surgeon: Андрей Mckeon DO PREOPERATIVE DIAGNOSIS: Primary osteoarthritis of the right knee. POSTOPERATIVE DIAGNOSIS: Primary osteoarthritis of the right knee. OPERATION: Right total knee arthroplasty. PROCEDURE: This 62-year-old female was taken to the operating room and placed in a supine position on the operating room table. A spinal anesthetic was administered, and the right lower extremity was elevated. It was prepped with Hibiclens and draped in the usual sterile fashion. Exsanguinated and the tourniquet inflated to 300 mmHg. All scrub personnel wore personal isolation suits. An anterior longitudinal midline incision was made followed by a median parapatellar arthrotomy incision. Intercondylar drill hole was made for the intramedullary alignment leticia. A 5 degree valgus 9 mm cut was made in the distal femur. The sizing jig was affixed and a size 67 was seen to be the appropriate size in the anteroposterior dimension but much too wide in the mediolateral. Therefore, we moved the pin sites 2 mm anteriorly and a 65 four-in-one cutting block was pinned in 3 degrees of external rotation. The appropriate cuts were made and the wafers of bone were removed. We then directed our attention to the proximal tibia, and an extramedullary alignment guide was used to cut the proximal tibia referencing a 10 mm cut off the lateral tibial plateau. However, the wafer of bone medially was extremely thin and therefore an additional 2 mm was taken, and a 3 degree posterior slope cut was made after the cutting block had been pinned in the appropriate position. The remnants of the menisci and osteophytes were removed from the posterior aspect of the joint. The wound was copiously irrigated with lactated Ringer solution. The tibia was sized to a size 71 and the stem punch was used. The patella was cut and restored to anatomic height with a 34 x 7.8 mm trial with first a 10 and then 11 and 12 mm bearing were inserted and we found that the 12 actually gave us the best fit. All trial components were then removed and the wound copiously irrigated with lactated Ringer solution. All bone surfaces were dried. All components were cemented and excess cement removed after the insertion of each component. Initially we placed the tibial baseplate followed by the tibial bearing, femoral component, and finally the patella. Once the cement had hardened, the knee was taken through range of motion and found to be stable throughout the range with no instability being identified. Exparel had been injected into the posterior, medial, and lateral corners of the joint prior to insertion of the final components. After insertion of final components, the remainder of the Exparel was injected into the periosteum and joint capsule of the proximal tibia and distal femur. A drain was placed through a separate stab incision. The arthrotomy incision was closed with #2 Vicryl. The subcutaneous tissue closed with 0 Vicryl and the skin stapled. Subcutaneous tissue closed with 0 Vicryl and the skin with gregg. Sterile dressings were applied with a Polar pack and the patient was taken to the recovery room in satisfactory condition. GROSS PATHOLOGY: This patient demonstrated advanced patellofemoral and medial compartment osteoarthritis with full-thickness articular cartilage loss being identified. The final components inserted were a [employer] size 65 cruciate retaining femoral component, a size 71 tibial baseplate, a 12 mm anterior stabilized A1 bearing, and a 34 x 7.8 mm patella was used. NAGI
--- NOTE | 2017-04-10 16:36 | Discharge Summary ---
DATE OF ADMISSION: 04/05/2017 DATE OF DISCHARGE: 04/07/2017 ADMITTING DIAGNOSIS: Osteoarthritis of the right knee. DISCHARGE DIAGNOSIS: Osteoarthritis of the right knee. OPERATIVE PROCEDURE: Elective right total knee arthroplasty. DESCRIPTION: This 61-year-old female was admitted to the hospital for elective surgery and tolerated the operative procedure well. The patient did have some blood out of her drain, and so we elected not to use the Arixtra, and instead treated her with aspirin as an anticoagulant, and she did not demonstrate any evidence of DVT during the course of her hospitalization. She was taking Percocet for pain control and seems to do well with that. The patient was doing better with physical therapy, but will need subacute rehab and will be admitted to Subacute Rehab on 04/08/2017. During the course of her hospitalization, she had no sign of DVT. She will be discharged to a Swing Bed. She will continue with aspirin 325 mg every 12 hours for 2 weeks, and follow up in the clinic in 2 weeks for reevaluation. Routine wound care instructions were given. Should she have any problems prior to being seen, she was instructed to call my office. NAGI
== END 2017-04-08 16:45 | disposition swing bed (61) | DRG 470 ==
LOC: MEDSURG 09:19
PROVIDERS: ADMIT Orthopaedic Surgery; ATTEND Orthopaedic Surgery
PROC: 0SRC0J9 Replacement of Right Knee Joint with Synthetic Substitute, Cemented, Open Approach (ICD-10-PCS; principal; 2017-04-05 12:00)
DX: M17.11 Unilateral primary osteoarthritis, right knee (principal); F31.9 Bipolar disorder, unspecified; I10 Essential (primary) hypertension; E03.9 Hypothyroidism, unspecified
CPT/HCPCS: 85025; 94640; 97110; 97116; 97165; 97530; J1170; J1200; J3490; J7120

== ENCOUNTER 2017-04-08 14:58 | Inpatient (IN) | payer MEDICARE, MEDICAID ==
[2017-04-08] MEDS ORDERED: TRAMADOL HCL 50 MG TABLET PO PRN (16:23)
[2017-04-08] MEDS ORDERED: DIPHENHYDRAMINE HCL 25 MG CAPSULE PO PRN (16:23)
[2017-04-08] MEDS ORDERED: ACETAMINOPHEN 325 MG TAB PO PRN (16:23)
[2017-04-08] MEDS ORDERED: ONDANSETRON 4 MG ODT TABLET SL PRN (16:23)
[2017-04-08] MEDS ORDERED: AL HYDROX/MAG HYDROX 30ML UD PO PRN (16:23)
[2017-04-08] MEDS ORDERED: MAGNESIUM HYDROXIDE 30 ML UDC PO PRN (16:23)
[2017-04-08] MEDS ORDERED: ZOLPIDEM TARTRATE 5 MG TABLET PO PRN (16:23)
[2017-04-08] MEDS ORDERED: HYDROCODONE/APAP 7.5/325MG TABLET PO PRN (16:23)
[2017-04-08] MEDS: OXYCODONE/APAP 7.5MG/325MG TABLET PO PRN ×2 (18:10→22:15)
--- NOTE | 2017-04-08 19:17 | History & Physical ---
History of Present Illness - Date Date of Service for History & Physical: 04/09/17 - History of Present Illness Admitting Diagnosis: Deconditioning due to Right total knee arthroplasty History of Present Illness: 62 yo female admitted to our swing bed unit following a total right knee arthroplasty. PMHx of osteoarthritis, well controlled asthma, HTN, hypothyroidism, depression and chronic anemia (since gastric bypass). Right knee replacement performed by Dr. Mckeon on 02/14/17. Patient states she was experiencing unbearable right knee pain for one year due to osteoarthritis prior to her surgery. Patient has less pain since surgery. Pain well controlled with Percocet 7.5/325 mg Q 4 hours PRN for pain. No drainage from site. Patient states she's doing really well in PT/OT. Dressing changes once daily. Lives in [place] in a one story home with her . There are steps to get down into her house w/ a railing. Standard bathtub. PCP: Dr. Shona Rolon Orthopedist: Dr. Mckeon General - Cognitive Patterns Orientation: Oriented x3 - Communication Preferred Language?: Japanese Import/Export Administrator Required: No Level of Education: College Preferred Method of Learning: Seeing, Doing, Reading Comprehension Ability: No Impairment Able to Read: Yes Able to Write: Yes Select best description of speech pattern: Clear Speech Ability to express ideas and wants: Understood Understanding verbal content: Understands - Psychosocial Well-Being Usual Living Arrangement: Other Living Arrangement Comment: friend - Dental Status Unable to examine: No Broken or loosely fitting full or partial dentures: No No natural teeth or tooth fragment(s) (edentulous): Yes Abnormal mouth tissue (ulcers, masses, oral lesions, etc.): No Obvious or likely cavity or broken natural teeth: No Inflamed or bleeding gums or loose natural teeth: No Mouth/facial pain, discomfort or difficulty chewing: No - Nutrition Screening Poor oral intake > 1 week: No Unplanned weight loss in specified time frame: No Nutrition Support via tube feedings or parenteral nutrition: No Pressure Ulcer: No Significantly underweight define as BMI <18.5 kg/m2: No Albumin <2.5mg/dL: No Persistent nausea/vomiting/diarrhea >3 days: No Difficulty chewing/swallowing/mouth sores: No Admitting Diagnosis: No Nutrition Risk Score: Low Risk Review of Systems Constitutional: Denies: Chills, Fever, Malaise, Night sweats, Weakness ENT: Denies: Congestion, Ear pain, Throat pain Respiratory: Denies: Cough, Dyspnea, Wheezes Cardiovascular: Denies: Chest pain, Dyspnea on exertion, Orthopnea Endocrine: Denies: Fatigue, Polydipsia, Polyuria Gastrointestinal: Denies: Abdominal pain, Constipation, Diarrhea, Hematemesis, Hematochezia, Melena, Nausea, Vomiting Genitourinary: Denies: Dysuria, Hematuria Musculoskeletal: Reports: Back pain (chronic), Joint swelling (right knee w/ incision site) Skin: Denies: Change in color Neurological: Reports: Abnormal gait (due to right knee surgery). Denies: Headache, Numbness, Weakness Psychiatric: Denies: Anxiety, Depression Hematological/Lymphatic: Reports: Anemia. Denies: Blood Clots, Easy bruising Past Medical History - SOCIAL HISTORY Smoking Status: Former smoker Alcohol Use: None - SURGICAL HISTORY Past Surgical History: SCS trial. bilat rotator cuff repair. gastric bypass 1997 - RESPIRATORY Hx Respiratory Disorders: Yes Hx Asthma: Yes (well controlled with Proair) Hx Bronchitis: Yes Hx Pneumonia: Yes - CARDIOVASCULAR Hx Cardio Disorders: Yes Hx Edema: Yes (at times) Hx Hypertension: Yes (controlled with meds) Comment:: uses cane and walker because of bad knee right needs replacement - NEURO Hx Neuro Disorders: Yes Hx Neuropathy: Yes - GI Hx GI Disorders: Yes Hx Reflux: Yes - Hx Genitourinary Disorders: No - ENDOCRINE Hx Endocrine Disorders: Yes Hx Thyroid Disease: Yes - MUSCULOSKELETAL Hx Musculoskeletal Disorders: Yes Hx Arthritis: Yes Hx Back Injury: Yes - PSYCH Hx Psych Problems: Yes Hx Anxiety: Yes (on meds but still some problems) Hx Depression: Yes - HEMATOLOGY/ONCOLOGY Hx Hematology/Oncology Disorders: Yes Hx Anemia: Yes (since gastric bypass) Family Medical History Any Significant Family History?: Yes Hx Diabetes: Mother Hx Heart Disease: Father Hx HTN: Father, Mother H&P Meds/Allergies - Allergies Allergies: Allergies Allergy/AdvReac Type Severity Reaction Status Date / Time prochlorperazine AdvReac anxiety Verified 02/08/17 09:25 [From Compazine] prochlorperazine edisylate AdvReac anxiety Verified 02/08/17 09:25 [From Compazine] prochlorperazine maleate AdvReac anxiety Verified 02/08/17 09:25 [From Compazine] - Active Medications Active Medications: Current Medications Acetaminophen (Tylenol 325mg) 650 mg PO Q4H PRN PRN Reason: Pain - General Hydrocodone Bitart/Acetaminophen (Timnath 7.5mg/325mg) 1 each PO Q4H PRN PRN Reason: Pain - Severe (8-10) Al Hydroxide/Mg Hydroxide (Maalox) 30 ml PO Q6H PRN PRN Reason: GI UPSET Albuterol Sulfate (Ventolin Hfa) 2 puff INH QAM [facility] Aspirin (Ecotrin (Ec)) 325 mg PO BID [facility] Bupropion HCl (Wellbutrin Sr) 150 mg PO QAM [facility] Cyclobenzaprine HCl (Flexeril) 10 mg PO TID PRN PRN Reason: MUSCLE SPASMS Diazepam (Valium) 5 mg PO Q8H PRN PRN Reason: ANXIETY Diphenhydramine HCl (Benadryl Capsule) 50 mg PO Q6H PRN PRN Reason: ITCHING Divalproex Sodium (Depakote Er) 500 mg PO DAILY [facility] Ferrous Sulfate (Iron) 325 mg PO DAILY [place] Levothyroxine Sodium (Synthroid) 175 mcg PO DAILYTHY [facility] Losartan Potassium (Cozaar) 25 mg PO DAILY [facility] Magnesium Hydroxide (Milk Of Magnesium) 30 ml PO QHS PRN PRN Reason: INDIGESTION Ondansetron HCl (Zofran Odt) 4 mg SL Q8H PRN PRN Reason: NAUSEA/VOMITING Oxycodone/Acetaminophen (Percocet 7.5-325 Mg Tablet) 1 each PO Q4H PRN PRN Reason: Pain - Severe (8-10) Stop: 04/15/17 16:24 Last Admin: 04/08/17 18:10 Dose: 1 each Pantoprazole Sodium (Protonix) 40 mg PO DAILYAC [facility] Patient Own Medication () 1 each PO QAM [facility] Senna/Docusate Sodium (Senna Plus) 1 each PO DAILY [facility] Tramadol HCl (Ultram) 100 mg PO Q6H PRN PRN Reason: Pain - Moderate (5-7) Tramadol HCl (Ultram) 50 mg PO Q6H PRN PRN Reason: Pain - Moderate (5-7) Trazodone HCl (Desyrel) 100 mg PO QHS [facility] Zolpidem Tartrate (Ambien) 5 mg PO QHS PRN PRN Reason: SLEEP Physical Exam - Vital Signs Vital Signs: Vital Signs - Last 24 Hrs Temp Pulse Resp BP Pulse Ox 04/08/17 16:45 98.7 F 85 16 120/87 95 - General General Appearance: Alert, Oriented x3, Cooperative, No acute distress - Head Head exam: Atraumatic, Normocephalic - Eye Eye exam: Normal appearance - ENT ENT exam: Normal exam - Neck Neck exam: Normal inspection - Respiratory Respiratory exam: Normal lung sounds bilaterally. negative: Wheezes - Cardiovascular Cardiovascular Exam: Regular rate, Normal rhythm, Normal heart sounds - GI/Abdominal GI/Abdominal exam: Soft, Normal bowel sounds - Rectal Rectal exam: Deferred - exam: Deferred - Extremities Extremities exam: Joint swelling (right knee, incision noted). negative: Calf tenderness - Neurological Neurological exam: Abnormal gait (due to right knee pain), Alert, Oriented X3 - Skin Skin exam: negative: Erythema, Normal color, Pallor, Rash Discharge Potential - Discharge Needs Community Services Used Prior to Admission: Physical Therapy Patient Discharge Plan Description: Return Home Community Services Needed at Discharge: Occupational Therapy, Physical Therapy Plan - Swing Bed Certification Initial Certification Due: 04/08/17 14 Day Re-Cert Due: 04/22/17 44 Day Re-Cert Due: 05/22/17 74 Day Re-Cert Due: 06/21/17 - Detailed Diagnosis and Plan (1) Status post total right knee replacement Current Visit: Yes Status: Acute Base Code: Z96.651 - PRESENCE OF RIGHT ARTIFICIAL KNEE JOINT Comment: 04/09/17: 62 yo female s/p right total knee arthroplasty. She's been admitted to our [facility] program to help build physical strength and function. - Ecotrin 325 mg bid for DVT prophylaxis, SCDs while in bed. - Percocet 7.5/325 mg Q4 hours PRN for pain control - PT/OT - continue home medications - discharge plan is home, self care (2) HTN (hypertension) Current Visit: Yes Status: Acute Base Code: I10 - ESSENTIAL (PRIMARY) HYPERTENSION Comment: 04/09/17: continue home medications - VS daily (3) DVT prophylaxis Current Visit: Yes Status: Acute Base Code: [id number] - Comment: 04/09/17: Risk- weight, decreased mobility, right knee replacement. - Ecotrin 325 mg bid x 14 days. SCDs while in bed. (4) Full code status Current Visit: Yes Status: Acute Base Code: Z78.9 - OTHER SPECIFIED HEALTH STATUS Comment: 04/09/17: pt is full code
[2017-04-08] MEDS: DIAZEPAM 5 MG TABLET PO PRN (20:11)
[2017-04-08] MEDS: TRAMADOL HCL 50 MG TABLET PO PRN (20:11)
[2017-04-08] MEDS: CYCLOBENZAPRINE 10MG TABLET PO PRN (22:16)
[2017-04-08] MEDS: TRAZODONE 50 MG TABLET PO SCH (22:16)
[2017-04-08] MEDS: ASPIRIN 325 MG TAB ENTERIC-COATED PO SCH (22:16)
[2017-04-09] MEDS: OXYCODONE/APAP 7.5MG/325MG TABLET PO PRN ×5 (02:31→23:06)
[2017-04-09] MEDS: DIAZEPAM 5 MG TABLET PO PRN ×3 (02:32→19:01)
[2017-04-09] MEDS: CYCLOBENZAPRINE 10MG TABLET PO PRN ×3 (06:31→23:05)
[2017-04-09] MEDS: PANTOPRAZOLE SODIUM 40 MG TABLET PO SCH (06:32)
[2017-04-09] MEDS: LEVOTHYROXINE SODIUM 175 MCG TABLET PO SCH (06:33)
[2017-04-09] MEDS: FERROUS SULFATE 325 MG TAB PO SCH (10:24)
[2017-04-09] MEDS: ASPIRIN 325 MG TAB ENTERIC-COATED PO SCH ×2 (10:24→23:06)
[2017-04-09] MEDS: DIVALPROEX SODIUM 500 MG TABLET ER PO SCH (10:24)
[2017-04-09] MEDS: LATUDA 80 MG PO SCH (10:25)
[2017-04-09] MEDS: SENNOSIDES/DOCUSATE SODIUM UD CAPSULE PO SCH (10:25)
[2017-04-09] MEDS: BUPROPION HCL 150 MG TAB.SR.12H PO SCH (10:25)
[2017-04-09] MEDS: LOSARTAN POTASSIUM 25 MG TABLET PO SCH (10:37)
--- NOTE | 2017-04-09 10:50 | Rehab Evaluation ---
Patient Information - Patient Information Diagnosis: deconditioning due to right TKA Ordered Treatment: OT Evaluate and Treat Status: Initial Evaluation Surgery: Yes (right TKA) Date of Surgery: 04/05/17 Past Medical/Surgical Hx: PAST MEDICAL/SURGICAL HISTORY Past Surgical History SCS trial bilat rotator cuff repair gastric bypass 1997 PMH - Respiratory Hx Respiratory Disorders Yes Hx Asthma Yes: well controlled with Proair Hx Bronchitis Yes Hx Pneumonia Yes PMH - Cardiovascular Hx Cardiovascular Disorders Yes Hx Edema Yes: at times Hx Hypertension Yes: controlled with meds Hx Heart Murmur Yes Comment: uses cane and walker because of bad knee right needs replacement PMH - Neuro Hx Neurological Disorders Yes Hx Neuropathy Yes PMH - GI Hx Gastrointestinal Disorders Yes Hx Gastroesophageal Reflux Yes PMH - Hx Genitourinary Disorders No Hx Age of Menopause 37 PMH - Endocrine Hx Endocrine Disorders Yes Hx Thyroid Disease Yes PMH - Musculoskeletal Hx Musculoskeletal Disorders Yes Hx Arthritis Yes Hx Back Injury Yes Hx Fibromyalgia Yes Hx Osteoporosis Yes Comment: OSTEOARTHRITIS PMH - Psych Hx Psychiatric Problems Yes Hx Anxiety Yes: on meds but still some problems Hx Depression Yes PMH - Hematology/Oncology Hx Hematology/Oncology Yes Disorders Hx Anemia Yes: since gastric bypass Premorbid Status: Detail (Pt reports she lives with spouse in a first floor apartment, 5-6 steps at the entrance with 1 handrailing. She has a raised toilet seat, tub/shower combination with extended tub bench, a 2 wheeled walker and a straight cane. She reports her spouse assists with showering, dressing and completes all home mgmt, meal prep and laundry.) Precautions: [place], Fall - Time With Patient Total Time Spent With Patient (Min): 45 Treatment Procedures: Detail (OT eval low complexity) Subjective Information - Subjective Information Per Patient Objective Data - Pain Pain Present: Yes (right knee pain) - Mental Status Patient Orientation: Oriented x3 - Visual Perception Appears within normal limits for therapeutic activities (Pt wears glasses for reading.) - ROM Not within normal limits (Deshawn UE AROM limited at deshawn shoulder flexion, pt reports she has a h/o rotator cuff surgeries and longstanding shoulder problems , deshawn elbow, wrist and hand AROM WNL.) - Strength/Tone Not within normal limits (De[place]wn shoulder flexion 3+/5 although functional for self cares, deshawn elbow, wrist and kettle room helper strength 4/5.) - Coordination Appears within normal limits for therapeutic activities - Bed Mobility Independent (Ind with supine to sit.) - Transfers Independent (Ind with sit to stand from EOB, standard height toilet (with use of grab bar), and shower bench.) - Balance Balance Sitting: Good Balance Standing: Good - Sensation Intact - Gait Detail (Pt able to ambulate in room with 2 wheeled walker Indly.) - ADL's/IADL's Detail (Pt able to complete showering on shower bench Indly after set up, able to doff gown, brief and sock type slippers Indly, required min assist to doff mary socks; toileted Indly; able to don brief, bra, dress, sock type slippers at EOB Indly. Pt amb to sink and completed oral hygiene in standing Indly.) Therapy Assessment - Therapy Assessment Detail (Pt presents with deshawn UE/shoulder weakness, she is Ind with showering, dressing with exception of mary socks and Ind with grooming/hygiene.) Problem List - Problem List Occupational Therapy Problem List: Detail (1. Decreased shoulder strength) Goals - Goals Occupational Therapy Goals: 1. Pt will increase shoulder strength by 1/2 muscle grade as able with premorbid shoulder issues. Prognosis - Prognosis Good Plan - Plan Occupational Therapy Plan: OT for 1-2 additional visits to provide patient education re: UE strengthening/endurance and to ensure pt needs are met for safe discharge home with spouse.
[2017-04-09] MEDS: ALBUTEROL HFA 8 GM INHALER INH SCH (11:28)
--- NOTE | 2017-04-09 14:00 | Rehab Evaluation ---
Patient Information - Patient Information Diagnosis: deconditioning due to right TKA Ordered Treatment: PT Evaluate and Treat Status: Initial Evaluation Surgery: Yes (right TKA) Date of Surgery: 04/05/17 Past Medical/Surgical Hx: PAST MEDICAL/SURGICAL HISTORY Past Surgical History SCS trial bilat rotator cuff repair gastric bypass 1997 PMH - Respiratory Hx Respiratory Disorders Yes Hx Asthma Yes: well controlled with Proair Hx Bronchitis Yes Hx Pneumonia Yes PMH - Cardiovascular Hx Cardiovascular Disorders Yes Hx Edema Yes: at times Hx Hypertension Yes: controlled with meds Hx Heart Murmur Yes Comment: uses cane and walker because of bad knee right needs replacement PMH - Neuro Hx Neurological Disorders Yes Hx Neuropathy Yes Hx Seizures No PMH - GI Hx Gastrointestinal Disorders Yes Hx Gastroesophageal Reflux Yes PMH - Hx Genitourinary Disorders No Hx Age of Menopause 37 PMH - Endocrine Hx Endocrine Disorders Yes Hx Diabetes No Hx Thyroid Disease Yes PMH - Musculoskeletal Hx Musculoskeletal Disorders Yes Hx Arthritis Yes Hx Back Injury Yes Hx Fibromyalgia Yes Hx Osteoporosis Yes Comment: OSTEOARTHRITIS PMH - Psych Hx Psychiatric Problems Yes Hx Anxiety Yes: on meds but still some problems Hx Depression Yes PMH - Hematology/Oncology Hx Hematology/Oncology Yes Disorders Hx Anemia Yes: since gastric bypass Premorbid Status: Detail (Pt reports she lives with spouse in a first floor apartment, 5-6 steps at the entrance with 1 handrailing. She has a raised toilet seat, tub/shower combination with extended tub bench, a 2 wheeled walker and a straight cane. She reports her spouse assists with showering, dressing and completes all home mgmt, meal prep and laundry. Patient reports she has a high bed which she acesses via a stool. The patient states her daughter is going to get her a hospital bed.) Precautions: [place], Fall - Time With Patient Total Time Spent With Patient (Min): 45 Treatment Procedures: Detail (Initial evaluation , gait training.) Subjective Information - Subjective Information Per Patient (The patient has complaints of right knee pain which she rates a level 6 currently.) Objective Data - Mental Status Patient Orientation: Oriented x3 - Visual Perception Appears within normal limits for therapeutic activities - ROM Not within normal limits (The patient's right knee AROM is flexion 82 degrees, extension seated -40 degrees, supine 0. Refer to OT note for UE AROM.) - Strength/Tone Not within normal limits (The patient's L LE strength is 5/5. The patient's R LE strength is as follows: hip musculature 4/5, hamstrings 4/5, quadriceps 2/5, ankle musculature 4+/5. Refer to OT note for UE strength.) - Coordination Appears within normal limits for therapeutic activities - Bed Mobility Independent (The patient was independent with supine to and from sit transfer and scooting up in bed. The patient acheived sit to supine in a partial quadriped position, which is unconvential however she showed a safe technique.) - Transfers Independent (Independent sit to and from stand transfer and toilet transfer.) - Balance Balance Sitting: Good Balance Standing: Good - Gait Detail (The patient ambulated independently with wheeled walker a distance of 200 feet WBAT on the R. The patient was independent and safe with ambulation on stairs using railing and folded walker, supervision for safety is recommended.) Therapy Assessment - Therapy Assessment Detail (The patient is independent with bed mobility , ambulation , toilet and sit to and from stand transfer. The patient is concerned re: car transfer due to higher vehicle that she has trouble getting in. The patient has R LE weakness and limited motion as to be expected following a TKA. Patient was instructed in use of sheet to lift R LE for SLR. Feel patient would benefit from instruction in car transfer. Discussed need for Home PT upon discharge from [facility], which patient was agreeable with.) Patient Education - Patient Education Teaching Topic: Exercise/Activity (Use of sheet for SLR.) Response: Return Demonstration Teaching Method: Demonstration Teaching Recipient: Patient Barriers To Learning: Age Related Problem List - Problem List Physical Therapy Problem List: Detail (1) RLE weakness and decreased knee AROM as to be expected following TKA.) Occupational Therapy Problem List: Detail (1. Decreased shoulder strength) Goals - Goals Physical Therapy Goals: 1)Independent/supervision with car transfer. 2) Independent with HEP progression Occupational Therapy Goals: 1. Pt will increase shoulder strength by 1/2 muscle grade as able with premorbid shoulder issues. Prognosis - Prognosis Good (Excellent for return to home.) Plan - Plan Physical Therapy Plan: PT 1 to 2 sessions for car transfer and review/ progression of HEP. Recommend Home PT after Discharge from [facility] to increase R LE strength and AROM. Occupational Therapy Plan: OT for 1-2 additional visits to provide patient education re: UE strengthening/endurance and to ensure pt needs are met for safe discharge home with spouse.
[2017-04-09] MEDS: TRAZODONE 50 MG TABLET PO SCH (23:05)
[2017-04-10] MEDS: DIAZEPAM 5 MG TABLET PO PRN ×3 (02:59→20:39)
[2017-04-10] MEDS: OXYCODONE/APAP 7.5MG/325MG TABLET PO PRN ×5 (02:59→20:39)
[2017-04-10] MEDS: PANTOPRAZOLE SODIUM 40 MG TABLET PO SCH (06:51)
[2017-04-10] MEDS: CYCLOBENZAPRINE 10MG TABLET PO PRN ×3 (06:52→22:52)
[2017-04-10] MEDS: LEVOTHYROXINE SODIUM 175 MCG TABLET PO SCH (06:52)
[2017-04-10] MEDS: ALBUTEROL HFA 8 GM INHALER INH SCH ×2 (08:39→12:25)
[2017-04-10] MEDS: LOSARTAN POTASSIUM 25 MG TABLET PO SCH (10:29)
[2017-04-10] MEDS: DIVALPROEX SODIUM 500 MG TABLET ER PO SCH (10:30)
[2017-04-10] MEDS: ASPIRIN 325 MG TAB ENTERIC-COATED PO SCH ×2 (10:30→22:52)
[2017-04-10] MEDS: BUPROPION HCL 150 MG TAB.SR.12H PO SCH (10:30)
[2017-04-10] MEDS: SENNOSIDES/DOCUSATE SODIUM UD CAPSULE PO SCH (10:30)
[2017-04-10] MEDS: FERROUS SULFATE 325 MG TAB PO SCH (10:30)
[2017-04-10] MEDS: LATUDA 80 MG PO SCH (10:32)
--- NOTE | 2017-04-10 10:59 | Physical Therapy Tx Note ---
Physical Therapy Tx Note - Treatment Note Tolerated: Good Total Time Spent With Patient: 60 Physical Therapy Tx Note: Detail (The patient was sitting up in chair when PT arrived. The patient acheived tub transfer with use of extended tub chair independently/ supervision for safety only. The patient ambulated independently a distance of 200 feet plus WBAT on the R. The patient requires verbal cues to turn with walker for sit to and from stand transfer ( the patient tends to set walker aside.) LE exercises were reviewed including quad set x 10 reps, SAQ unassisted x 5 reps and SLR unassisted x 3 reps. Patient continues to present with difficulty isolating quadriceps. The patient completed car transfer with and granddaughter present. The patient achieved car transfer independently with minimal assist only to clear toe for safety. The patient's said he would tilt seat back when she is discharged to allow foot clearance. The patient has met all inpatient PT goals.) Physical Therapy Problem List: Detail (1) RLE weakness and decreased knee AROM as to be expected following TKA.) Physical Therapy Goals: 1)Independent/supervision with car transfer. 2) Independent with HEP progression Physical Therapy Plan: PT inpatient goals have been met. Will review/ progression of HEP prior to discharge and remeasure R knee ROM. Recommend Home PT after Discharge from [facility] to increase R LE strength and AROM.
--- NOTE | 2017-04-10 16:31 | Discharge Summary ---
Providers Discharge Summary Date: 04/12/17 Date of admission: 04/08/17 16:45 Expected Date of Discharge: 04/12/17 Attending physician: SHELLY TEIXEIRA Primary care physician: ANÍBAL MILAN Physical Exam - Vital Signs Vital Signs: Vital Signs - Last 24 Hrs Temp Pulse Pulse Resp BP Pulse Ox 04/10/17 12:23 78 20 99 04/10/17 10:00 98.4 F 87 16 113/68 98 - General General Appearance: Alert, Oriented x3, Cooperative, No acute distress - Head Head exam: Atraumatic, Normocephalic - Eye Eye exam: Normal appearance - ENT ENT exam: Normal exam - Neck Neck exam: Normal inspection - Respiratory Respiratory exam: Normal lung sounds bilaterally. negative: Wheezes - Cardiovascular Cardiovascular Exam: Regular rate, Normal rhythm, Normal heart sounds - GI/Abdominal GI/Abdominal exam: Soft, Normal bowel sounds - Rectal Rectal exam: Deferred - exam: Deferred - Extremities Extremities exam: Joint swelling (right knee, incision noted). negative: Calf tenderness - Neurological Neurological exam: Abnormal gait (due to right knee pain), Alert, Oriented X3 - Skin Skin exam: negative: Erythema, Normal color, Pallor, Rash Hospitalization - Hospitalization Admission Diagnosis: Deconditioning due to Right total knee arthroplasty - Problem List (1) Status post total right knee replacement Current Visit: Yes Status: Acute Base Code: Z96.651 - PRESENCE OF RIGHT ARTIFICIAL KNEE JOINT Comment: 04/12/17: 62 yo female s/p right total knee arthroplasty. She's been admitted to our [facility] program to help build physical strength and function. - Ecotrin 325 mg bid for DVT prophylaxis, SCDs while in bed. - Percocet 7.5/325 mg Q4 hours PRN for pain control - home PT/OT - continue home medications - discharge plan is home, self care, home PT/OT - follow up Dr Mckeon 1-2 weeks - follow up PCP 1-2 weeks (2) HTN (hypertension) Current Visit: Yes Status: Acute Base Code: I10 - ESSENTIAL (PRIMARY) HYPERTENSION Comment: 04/12/17: continue home medications - VS daily - BP controlled (3) DVT prophylaxis Current Visit: Yes Status: Acute Base Code: [id number] - Comment: 04/12/17: Risk- weight, decreased mobility, right knee replacement. - Ecotrin 325 mg bid x 14 days. SCDs while in bed. (4) Full code status Current Visit: Yes Status: Acute Base Code: Z78.9 - OTHER SPECIFIED HEALTH STATUS Comment: 04/12/17: pt is full code - Hospitalization Course Disposition: Home Health Service Reason For Discharge/Transfer: Medical Stability Hospital Course: 62 yo female admitted to our swing bed unit following a total right knee arthroplasty. PMHx of osteoarthritis, well controlled asthma, HTN, hypothyroidism, depression and chronic anemia (since gastric bypass). Right knee replacement performed by Dr. Mckeon on 02/14/17. Patient states she was experiencing unbearable right knee pain for one year due to osteoarthritis prior to her surgery. Patient has less pain since surgery. Pain well controlled with Percocet 7.5/325 mg Q 4 hours PRN for pain. No drainage from site. Patient states she's doing really well in PT/OT. Dressing changes once daily. Lives in [place] in a one story home with her . There are steps to get down into her house w/ a railing. Standard bathtub. PCP: Dr. Aníbal Rolon Orthopedist: Dr. Mckeon Condition at Discharge: (2) Stable Discharge Medications - Discharge Medications Prescriptions: Cholecalciferol (Vitamin D3) [Vitamin D] 50,000 unit PO WEEKLY #4 capsule Lurasidone HCl [Latuda] 80 mg PO DAILY #30 tablet Multivitamin [Multiple Vitamins] 1 each PO DAILY #30 tablet Oxycodone HCl/Acetaminophen [Percocet 7.5mg/325mg] 1 each PO Q4H PRN #60 tab PRN Reason: Pain - Severe (8-10) Pantoprazole Sodium [Protonix] 40 mg PO DAILYAC #30 tab.er Sennosides/Docusate Sodium [Senna Plus] 1 each PO DAILY #30 Home Medications: Ambulatory Orders Albuterol Sulfate [Ventolin Hfa] 2 puff INH QAM inhaler 04/11/17 [Last Taken Unknown] Bupropion HCl [Wellbutrin Sr] 150 mg PO QAM 04/11/17 [Last Taken Unknown] Cholecalciferol (Vitamin D3) [Vitamin D] 50,000 unit PO WEEKLY #4 capsule [Last Taken Unknown] Cyclobenzaprine HCl [Flexeril] 10 mg PO TID PRN 04/11/17 [Last Taken Unknown] Diazepam [Valium] 5 mg PO Q8H PRN tab 04/11/17 [Last Taken Unknown] Divalproex Sodium [Depakote ER] 500 mg PO DAILY 04/11/17 [Last Taken Unknown] Ferrous Sulfate [Iron] 325 mg PO DAILY tab 04/11/17 [Last Taken Unknown] Levothyroxine Sodium [Synthroid] 175 mcg PO DAILYTHY 04/11/17 [Last Taken Unknown] Losartan Potassium [Cozaar] 25 mg PO DAILY 04/11/17 [Last Taken Unknown] Lurasidone HCl [Latuda] 80 mg PO DAILY #30 tablet 04/11/17 [Last Taken Unknown] Multivitamin [Multiple Vitamins] 1 each PO DAILY #30 tablet 04/11/17 [Last Taken Unknown] Oxycodone HCl/Acetaminophen [Percocet 7.5mg/325mg] 1 each PO Q4H PRN #60 tab [Last Taken Unknown] Pantoprazole Sodium [Protonix] 40 mg PO DAILYAC #30 tab.er 04/11/17 [Last Taken Unknown] Sennosides/Docusate Sodium [Senna Plus] 1 each PO DAILY #30 04/11/17 [Last Taken Unknown] Trazodone HCl [Desyrel] 100 mg PO QHS tab 04/11/17 [Last Taken Unknown] Discharge Plan - Discharge Instructions Activity at Discharge: As Per Physical Therapy Diet at Discharge: Advance to Usual Diet Instructions: Total Knee Replacement (DC) Additional Instructions: 2 Activity: As Per Physical Therapy 2 Diet: Advance to Usual Diet 2 Consults: 2 Follow Up: With your orthopedic surgeon as planned. Your PCP 1-2 weeks 2 Dressing/Wound Care: Apply dressing as needed for comfort 2 Additional: Return to your closest emergency room if: you have any yellow, smelly drainage the incision area becomes red, swollen, and hot to touch you run a temperature of 100.4 or more
[2017-04-10] MEDS: TRAZODONE 50 MG TABLET PO SCH (22:52)
[2017-04-10] MEDS: TRAMADOL HCL 50 MG TABLET PO PRN (22:53)
[2017-04-11] MEDS: OXYCODONE/APAP 7.5MG/325MG TABLET PO PRN ×5 (02:43→19:48)
[2017-04-11] MEDS: CYCLOBENZAPRINE 10MG TABLET PO PRN ×2 (06:51→15:34)
[2017-04-11] MEDS: PANTOPRAZOLE SODIUM 40 MG TABLET PO SCH (06:51)
[2017-04-11] MEDS: LEVOTHYROXINE SODIUM 175 MCG TABLET PO SCH (06:51)
[2017-04-11] MEDS: ALBUTEROL HFA 8 GM INHALER INH SCH (09:14)
[2017-04-11] MEDS: FERROUS SULFATE 325 MG TAB PO SCH (09:25)
[2017-04-11] MEDS: LOSARTAN POTASSIUM 25 MG TABLET PO SCH (09:25)
[2017-04-11] MEDS: ASPIRIN 325 MG TAB ENTERIC-COATED PO SCH ×2 (09:25→21:02)
[2017-04-11] MEDS: DIVALPROEX SODIUM 500 MG TABLET ER PO SCH (09:25)
[2017-04-11] MEDS: SENNOSIDES/DOCUSATE SODIUM UD CAPSULE PO SCH (09:25)
[2017-04-11] MEDS: BUPROPION HCL 150 MG TAB.SR.12H PO SCH (09:25)
[2017-04-11] MEDS: TRAMADOL HCL 50 MG TABLET PO PRN ×2 (09:32→22:51)
[2017-04-11] MEDS: LATUDA 80 MG PO SCH (10:14)
--- NOTE | 2017-04-11 10:26 | Physician Progress Note ---
Subjective - Date Date of Progress Note: 04/11/17 - Admitting Diagnosis Diagnosis: Deconditioning due to Right total knee arthroplasty - Subjective Events since last encounter: Reports is feeling strong and ready to go home. Denies GI/ dysfunction. Is up and walking independently. Recently worked on car transfers. Pain level is 6-7, under fair control with pain meds as prescribed. Does request hand rails in shower for safety at home. Already has a commode for her toilet. No new nursing concerns Nursing Care Plan Problem List Activity Intolerance (Swing Bed) Start: 04/08/17 16: 54 Freq: Status: Active Created 04/08/17 16:54 [facility] (Rec: 04/08/17 16:54 [id number]) Knowledge Deficit (Swing Bed) Start: 04/08/17 16: 54 Freq: Status: Active Created 04/08/17 16:54 [facility] (Rec: 04/08/17 16:54 [id number]) Pain (Swing Bed) Start: 04/08/17 16: 54 Freq: Status: Active Created 04/08/17 16:54 [facility] (Rec: 04/08/17 16:54 [id number]) Skin Integrity, Impaired (Swing Bed) Start: 04/08/17 16: 57 Freq: Status: Active Created 04/08/17 16:57 [facility] (Rec: 04/08/17 16:57 [id number]) - Subjective Detail Constitutional: Reports: As per HPI Eyes: Reports: As per HPI ENT: Reports: As per HPI Respiratory: Reports: As per HPI Cardiovascular: Reports: As per HPI Gastrointestinal: Reports: As per HPI Genitourinary: Reports: As per HPI Musculoskeletal: Reports: As per HPI Skin: Reports: As per HPI Neurological: Reports: As per HPI Psychiatric: Reports: As per HPI General - Cognitive Patterns Speech: Soft Thought Process: Intact Thought Content: Normal - Communication Select best description of speech pattern: Clear Speech Ability to express ideas and wants: Understood Understanding verbal content: Understands - Mood and Behavior Patterns Appearance: Well Groomed Mood: Normal Attitude: Cooperative Motor Activity: Calm Affect: Appropriate Hallucinations: Auditory, Visual Hallucinations Comment: in past-currently managed with medications - Physical Functioning Activity Level: Up as tolerated Turning: Self ad tita ROM Ability: Moves all extremities Assistive Devices: Straight Cane, 4 Wheel Walker Ambulation Ability: Independent Bed Mobility: Independent Transfer Ability: Independent Bathing Ability: Independent Personal Hygiene: Independent Dressing Ability: Independent Eating (Feeding) Ability: Independent Toileting Ability: Independent Administer Own Medication: Needs Assist - Continence Bowel Pattern: Normal for Patient, No Bowel Movement Bladder Pattern: Normal Meds/Allergies - Allergies Allergies Allergy/AdvReac Type Severity Reaction Status Date / Time prochlorperazine AdvReac anxiety Verified 02/08/17 09:25 [From Compazine] prochlorperazine edisylate AdvReac anxiety Verified 02/08/17 09:25 [From Compazine] prochlorperazine maleate AdvReac anxiety Verified 02/08/17 09:25 [From Compazine] - Active Medications Current Medications Acetaminophen (Tylenol 325mg) 650 mg PO Q4H PRN PRN Reason: Pain - General Hydrocodone Bitart/Acetaminophen ([place] 7.5mg/325mg) 1 each PO Q4H PRN PRN Reason: Pain - Severe (8-10) Last Admin: 04/09/17 15:08 Dose: 1 each Al Hydroxide/Mg Hydroxide (Maalox) 30 ml PO Q6H PRN PRN Reason: GI UPSET Albuterol Sulfate (Ventolin Hfa) 2 puff INH QAM [facility] Last Admin: 04/11/17 09:14 Dose: 2 puff Aspirin (Ecotrin (Ec)) 325 mg PO BID [facility] Last Admin: 04/11/17 09:25 Dose: 325 mg Bupropion HCl (Wellbutrin Sr) 150 mg PO QAM [facility] Last Admin: 04/11/17 09:25 Dose: 150 mg Cyclobenzaprine HCl (Flexeril) 10 mg PO TID PRN PRN Reason: MUSCLE SPASMS Last Admin: 04/11/17 06:51 Dose: 10 mg Diazepam (Valium) 5 mg PO Q8H PRN PRN Reason: ANXIETY Last Admin: 04/10/17 20:39 Dose: 5 mg Diphenhydramine HCl (Benadryl Capsule) 50 mg PO Q6H PRN PRN Reason: ITCHING Divalproex Sodium (Depakote Er) 500 mg PO DAILY [facility] Last Admin: 04/11/17 09:25 Dose: 500 mg Ferrous Sulfate (Iron) 325 mg PO DAILY [facility] Last Admin: 04/11/17 09:25 Dose: 325 mg Levothyroxine Sodium (Synthroid) 175 mcg PO DAILYTHY [facility] Last Admin: 04/11/17 06:51 Dose: 175 mcg Losartan Potassium (Cozaar) 25 mg PO DAILY [facility] Last Admin: 04/11/17 09:25 Dose: 25 mg Magnesium Hydroxide (Milk Of Magnesium) 30 ml PO QHS PRN PRN Reason: INDIGESTION Ondansetron HCl (Zofran Odt) 4 mg SL Q8H PRN PRN Reason: NAUSEA/VOMITING Oxycodone/Acetaminophen (Percocet 7.5-325 Mg Tablet) 1 each PO Q4H PRN PRN Reason: Pain - Severe (8-10) Stop: 04/15/17 16:24 Last Admin: 04/11/17 06:51 Dose: 1 each Pantoprazole Sodium (Protonix) 40 mg PO DAILYAC [facility] Last Admin: 04/11/17 06:51 Dose: 40 mg Patient Own Med: (Latuda 80 Mg) 1 each PO QAM [facility] Last Admin: 04/11/17 10:14 Dose: Not Given Senna/Docusate Sodium (Senna Plus) 1 each PO DAILY [facility] Last Admin: 04/11/17 09:25 Dose: 1 each Tramadol HCl (Ultram) 100 mg PO Q6H PRN PRN Reason: Pain - Moderate (5-7) Last Admin: 04/11/17 09:32 Dose: 100 mg Tramadol HCl (Ultram) 50 mg PO Q6H PRN PRN Reason: Pain - Moderate (5-7) Trazodone HCl (Desyrel) 100 mg PO QHS [facility] Last Admin: 04/10/17 22:52 Dose: 100 mg Zolpidem Tartrate (Ambien) 5 mg PO QHS PRN PRN Reason: SLEEP Objective - Vital Signs Vital Signs: Vital Signs - Last 24 Hrs Temp Pulse Pulse Resp BP Pulse Ox 04/11/17 09:15 72 16 04/11/17 09:00 99.1 F 91 H 18 117/78 94 L 04/10/17 12:23 78 20 99 - General General Appearance: Alert, Oriented x3, Cooperative, No acute distress - Head Head exam: Atraumatic, Normocephalic - Eye Eye exam: Normal appearance - ENT ENT exam: Normal exam - Neck Neck exam: Normal inspection - Respiratory Respiratory exam: Normal lung sounds bilaterally. negative: Wheezes - Cardiovascular Cardiovascular Exam: Regular rate, Normal rhythm, Normal heart sounds Peripheral Pulses: 2+: Dorsalis Pedis (R), Dorsalis Pedis (L) - GI/Abdominal GI/Abdominal exam: Soft, Normal bowel sounds - Rectal Rectal exam: Deferred - exam: Deferred - Extremities Extremities exam: Joint swelling (right knee, incision noted), Other (right knee incision well approx, gregg intact, no erythema, no drainage, no evidence infection. Slight surrounding sof tissue swelling). negative: Calf tenderness, Pedal edema - Back Back exam: Reports: Normal inspection - Neurological Neurological exam: Abnormal gait (due to right knee pain), Alert, Oriented X3 - Skin Skin exam: Other (right knee incision well approx, gregg intact, no erythema, no drainage, no evidence infection. Slight surrounding sof tissue swelling). negative: Erythema, Normal color, Pallor, Rash Discharge Potential - Discharge Needs Community Services Used Prior to Admission: None, Home Health Aide, Home Health Nurse, Occupational Therapy, Physical Therapy Patient Discharge Plan Description: Return Home, Visiting Nurse Community Services Needed at Discharge: Home Health Nurse, Occupational Therapy , Physical Therapy Discharge Needs Comment: [facility] Plan - Swing Bed Certification Initial Certification Due: 04/08/17 14 Day Re-Cert Due: 04/22/17 44 Day Re-Cert Due: 05/22/17 74 Day Re-Cert Due: 06/21/17 - Detailed Diagnosis and Plan (1) Status post total right knee replacement Current Visit: Yes Status: Acute Base Code: Z96.651 - PRESENCE OF RIGHT ARTIFICIAL KNEE JOINT Comment: 04/11/17: 62 yo female s/p right total knee arthroplasty. She's been admitted to our [facility] program to help build physical strength and function. - Ecotrin 325 mg bid for DVT prophylaxis, SCDs while in bed. - Percocet 7.5/325 mg Q4 hours PRN for pain control - PT/OT - continue home medications - discharge plan is home, self care, home PT/OT - anticipate diacharge home 04/12/17 (2) HTN (hypertension) Current Visit: Yes Status: Acute Base Code: I10 - ESSENTIAL (PRIMARY) HYPERTENSION Comment: 04/11/17: continue home medications - VS daily - BP controlled (3) DVT prophylaxis Current Visit: Yes Status: Acute Base Code: [id number] - Comment: 04/11/17: Risk- weight, decreased mobility, right knee replacement. - Ecotrin 325 mg bid x 14 days. SCDs while in bed. (4) Full code status Current Visit: Yes Status: Acute Base Code: Z78.9 - OTHER SPECIFIED HEALTH STATUS Comment: 04/11/17: pt is full code
--- NOTE | 2017-04-11 11:40 | Occupational Therapy Tx Note ---
Occupational Therapy Tx Note - Treatment Note Tolerated: Fair Total Time Spent With Patient: 20 (ther ex) Occupational Therapy Treatment Note: Detail (S: Pt reports feeling very fatigued from showering this am. O: Pt educated and verbalizes understanding of kathryn UE theraband exercises using red theraband. Provided demonstration of UE exercises including elbow flexion, elbow extension, shoulder flexion, extension, horiz. abduction, horiz. adduction, IR, ER,shoulder abduction, adduction. Provide pt with written exercises and red theraband for use at home. A: Pt verbalizes learning of UE HEP) Occupational Therapy Problem List: Detail (1. Decreased shoulder strength) Occupational Therapy Goals: 1. Pt will increase shoulder strength by 1/2 muscle grade as able with premorbid shoulder issues. Prognosis: Good Occupational Therapy Plan: OT for 1-2 additional visits to provide patient education re: UE strengthening/endurance and to ensure pt needs are met for safe discharge home with spouse.
--- NOTE | 2017-04-11 15:05 | Physical Therapy Tx Note ---
Physical Therapy Tx Note - Treatment Note Tolerated: Good Total Time Spent With Patient: 25 Physical Therapy Tx Note: Detail (The patient's HEP was reviewed including: quadricep sets, gluteal sets, SLR,SAQ,ankle pumps,hamstring sets, seated heel slides all x 5 to 10 reps. The patient's R knee AROM was measured as extension -4 degrees, flexion 86 degrees. The patient was given written instructions.) Physical Therapy Problem List: Detail (1) RLE weakness and decreased knee AROM as to be expected following TKA.) Physical Therapy Goals: 1)Independent/supervision with car transfer. 2) Independent with HEP progression Physical Therapy Plan: PT inpatient goals have been met. The patient is to be discharged on 04/12/17.
[2017-04-11] MEDS: DIAZEPAM 5 MG TABLET PO PRN (20:31)
[2017-04-11] MEDS: TRAZODONE 50 MG TABLET PO SCH (21:02)
[2017-04-12] MEDS: OXYCODONE/APAP 7.5MG/325MG TABLET PO PRN ×3 (00:50→11:32)
[2017-04-12] MEDS: PANTOPRAZOLE SODIUM 40 MG TABLET PO SCH (06:26)
[2017-04-12] MEDS: LEVOTHYROXINE SODIUM 175 MCG TABLET PO SCH (06:26)
[2017-04-12] MEDS: TRAMADOL HCL 50 MG TABLET PO PRN (08:47)
[2017-04-12] MEDS: ASPIRIN 325 MG TAB ENTERIC-COATED PO SCH (10:03)
[2017-04-12] MEDS: BUPROPION HCL 150 MG TAB.SR.12H PO SCH (10:03)
[2017-04-12] MEDS: FERROUS SULFATE 325 MG TAB PO SCH (10:03)
[2017-04-12] MEDS: LOSARTAN POTASSIUM 25 MG TABLET PO SCH (10:03)
[2017-04-12] MEDS: SENNOSIDES/DOCUSATE SODIUM UD CAPSULE PO SCH (10:03)
[2017-04-12] MEDS: DIVALPROEX SODIUM 500 MG TABLET ER PO SCH (10:03)
[2017-04-12] MEDS: ALBUTEROL HFA 8 GM INHALER INH SCH (10:04)
[2017-04-12] MEDS: LATUDA 80 MG PO SCH (10:04)
--- NOTE | 2017-04-13 08:47 | Rehab Discharge Summary ---
Patient Information - Patient Information Diagnosis: deconditioning due to right TKA Ordered Treatment: OT Evaluate and Treat Surgery: Yes (right TKA) Date of Surgery: 04/05/17 Past Medical/Surgical Hx: PAST MEDICAL/SURGICAL HISTORY Past Surgical History SCS trial bilat rotator cuff repair gastric bypass 1997 PMH - Respiratory Hx Respiratory Disorders Yes Hx Asthma Yes: well controlled with Proair Hx Bronchitis Yes Hx Pneumonia Yes PMH - Cardiovascular Hx Cardiovascular Disorders Yes Hx Edema Yes: at times Hx Hypertension Yes: controlled with meds Hx Heart Murmur Yes Comment: uses cane and walker because of bad knee right needs replacement PMH - Neuro Hx Neurological Disorders Yes Hx Neuropathy Yes Hx Seizures No PMH - GI Hx Gastrointestinal Disorders Yes Hx Gastroesophageal Reflux Yes PMH - Hx Genitourinary Disorders No Hx Age of Menopause 37 PMH - Endocrine Hx Endocrine Disorders Yes Hx Diabetes No Hx Thyroid Disease Yes PMH - Musculoskeletal Hx Musculoskeletal Disorders Yes Hx Arthritis Yes Hx Back Injury Yes Hx Fibromyalgia Yes Hx Osteoporosis Yes Comment: OSTEOARTHRITIS PMH - Psych Hx Psychiatric Problems Yes Hx Anxiety Yes: on meds but still some problems Hx Depression Yes PMH - Hematology/Oncology Hx Hematology/Oncology Yes Disorders Hx Anemia Yes: since gastric bypass Premorbid Status: Detail (Pt reports she lives with spouse in a first floor apartment, 5-6 steps at the entrance with 1 handrailing. She has a raised toilet seat, tub/shower combination with extended tub bench, a 2 wheeled walker and a straight cane. She reports her spouse assists with showering, dressing and completes all home mgmt, meal prep and laundry. Patient reports she has a high bed which she acesses via a stool. The patient states her daughter is going to get her a hospital bed.) Precautions: Biggs, Fall Subjective Information - Subjective Information Per Patient Objective Data - Pain Pain Present: Yes (Right knee pain.) - Mental Status Patient Orientation: Oriented x3 - Visual Perception Appears within normal limits for therapeutic activities (Pt wears glasses for reading.) - ROM Not within normal limits (Impaired ROM deshawn shoulders premorbidly, functional for self cares. Deshawn elbow, wrist and hand AROM WNL.) - Strength/Tone Not within normal limits (Deshawn shoulder strength 4-/5 within AROM limitations. Deshawn elbows, wrists and controlled atmospheric furnace brazer 4/5.) - Coordination Appears within normal limits for therapeutic activities - Bed Mobility Independent - Transfers Independent - Balance Balance Sitting: Good Balance Standing: Good - Sensation Intact - Gait Detail (Ind with 2 wheeled walker household distances.) - ADL's/IADL's Detail (Ind with showering in sitting, dressing, toileting, grooming and hygiene.) Therapy Assessment - Therapy Assessment Detail (Pt is safe and Ind with self cares and functional mobility.) Problem List - Problem List Physical Therapy Problem List: Detail (1) RLE weakness and decreased knee AROM as to be expected following TKA.) Occupational Therapy Problem List: Detail (1. Decreased shoulder strength) Goals - Goals Physical Therapy Goals: 1)Independent/supervision with car transfer. 2) Independent with HEP progression Occupational Therapy Goals: Goals partially met: 1. Pt will increase shoulder strength by 1/2 muscle grade as able with premorbid shoulder issues. Prognosis - Prognosis Good Plan - Plan Physical Therapy Plan: PT inpatient goals have been met. The patient is to be discharged on 04/12/17. Occupational Therapy Plan: Pt discharged home with home OT/PT.
--- NOTE | 2017-04-13 10:02 | Rehab Discharge Summary ---
Patient Information - Patient Information Diagnosis: deconditioning due to right TKA Ordered Treatment: PT Evaluate and Treat Surgery: Yes (right TKA) Date of Surgery: 04/05/17 Past Medical/Surgical Hx: PAST MEDICAL/SURGICAL HISTORY Past Surgical History SCS trial bilat rotator cuff repair gastric bypass 1997 PMH - Respiratory Hx Respiratory Disorders Yes Hx Asthma Yes: well controlled with Proair Hx Bronchitis Yes Hx Pneumonia Yes PMH - Cardiovascular Hx Cardiovascular Disorders Yes Hx Edema Yes: at times Hx Hypertension Yes: controlled with meds Hx Heart Murmur Yes Comment: uses cane and walker because of bad knee right needs replacement PMH - Neuro Hx Neurological Disorders Yes Hx Neuropathy Yes Hx Seizures No PMH - GI Hx Gastrointestinal Disorders Yes Hx Gastroesophageal Reflux Yes PMH - Hx Genitourinary Disorders No Hx Age of Menopause 37 PMH - Endocrine Hx Endocrine Disorders Yes Hx Diabetes No Hx Thyroid Disease Yes PMH - Musculoskeletal Hx Musculoskeletal Disorders Yes Hx Arthritis Yes Hx Back Injury Yes Hx Fibromyalgia Yes Hx Osteoporosis Yes Comment: OSTEOARTHRITIS PMH - Psych Hx Psychiatric Problems Yes Hx Anxiety Yes: on meds but still some problems Hx Depression Yes PMH - Hematology/Oncology Hx Hematology/Oncology Yes Disorders Hx Anemia Yes: since gastric bypass Premorbid Status: Detail (Pt reports she lives with spouse in a first floor apartment, 5-6 steps at the entrance with 1 handrailing. She has a raised toilet seat, tub/shower combination with extended tub bench, a 2 wheeled walker and a straight cane. She reports her spouse assists with showering, dressing and completes all home mgmt, meal prep and laundry. Patient reports she has a high bed which she acesses via a stool. The patient states her daughter is going to get her a hospital bed.) Precautions: Walker, Fall Subjective Information - Subjective Information Per Patient (The patient had complaints of R knee pain which was controlled via medication. The patient did not rate her pain using 0-10 pain scale.) Objective Data - Mental Status Patient Orientation: Oriented x3 - Visual Perception Appears within normal limits for therapeutic activities - ROM Not within normal limits (The patient's R knee AROM was flexion 86 degrees, extension -4 degrees.) - Strength/Tone Not within normal limits (R LE strength: quadriceps 2+/5, hamstrings, 4/5, hip flexors, abductors/adductors and extensors 4/5, ankle musculature 4+/5.) - Bed Mobility Independent (The patient was independent with supine to and from sit transfer and scooting up in bed.) - Transfers Independent (The patient was independent with sit to and from stand transfer, toilet and tub transfer to tub chair. The patient required verbal cues at times not to leave walker behind with sit to stand but to turn with walker. The patient transferred to car with present, the patient required minimal assist to clear R toe into car. was going to tilt seat back to assist in clearance when the patient was discharged.) - Balance Balance Sitting: Good Balance Standing: Good - Gait Detail (The patient was independent with ambulation with wheeled walker a distance of 250 feet plus WBAT on the R LE.) Therapy Assessment - Therapy Assessment Detail (The patient was independent with all mobility and exhibited improved LE strength. The patient is to receive Home PT to progress LE strength and ROM.) Patient Education - Patient Education Teaching Topic: Exercise/Activity (The patient was issued a HEP including : ankle pumps, gluteal, quad and hamstring sets, SLR, SAQ and seated heel slides.) Response: Return Demonstration Teaching Method: Handout Teaching Recipient: Patient Problem List - Problem List Physical Therapy Problem List: Detail (1) RLE weakness and decreased knee AROM as to be expected following TKA.) Occupational Therapy Problem List: Detail (1. Decreased shoulder strength) Goals - Goals Physical Therapy Goals: GOALS MET: 1)Independent/supervision with car transfer. 2) Independent with HEP progression Occupational Therapy Goals: Goals partially met: 1. Pt will increase shoulder strength by 1/2 muscle grade as able with premorbid shoulder issues. Plan - Plan Physical Therapy Plan: PT inpatient goals have been met. The patient is to be discharged on 04/12/17 with home PT/OT. Occupational Therapy Plan: Pt discharged home with home OT/PT.
== END 2017-04-12 12:39 | disposition home health service (06) | DRG 566 ==
LOC: MEDSURG 16:45
PROVIDERS: ADMIT Family Medicine; ATTEND Family Medicine
DX: Z96.651 Presence of right artificial knee joint (principal); I10 Essential (primary) hypertension; E03.9 Hypothyroidism, unspecified; F41.9 Anxiety disorder, unspecified; Z78.9 Other specified health status
CPT/HCPCS: 97110; 97165; 97530; 99306; 99316; J3490